=== PATIENT | male | born 1940 | race Caucasian/White ===

== ENCOUNTER → 2016-09-02 | Outpatient (CLI) | payer BC | END | disposition home or self-care (01) | LOC: C.RDSM 10:05 | PROVIDERS: ATTEND Physical Medicine & Rehabilitation Sports Medicine | DX: M17.12 Unilateral primary osteoarthritis, left knee (principal) ==

== ENCOUNTER → 2017-03-17 | Outpatient (CLI) | payer BC | END | disposition home or self-care (01) | LOC: C.RDSM 14:03 | PROVIDERS: ATTEND Physical Medicine & Rehabilitation Sports Medicine | DX: M17.12 Unilateral primary osteoarthritis, left knee (principal) ==

== ENCOUNTER 2023-03-01 15:12 | Inpatient (IN) ==
--- NOTE | 2023-03-01 16:16 | Emergency Department Note ---
Impression & Plan Acute confusion, Threatening behavior, Hypomagnesemia, Leukocytosis ED Provider Note NAME: JABIER RANGEL AGE: 83 SEX: M : 1940 ARRIVES VIA: Police [employer]iser INFORMANT: [Patient][nursing] ED PROVIDER(S): [Pro Brooks MD] CHIEF COMPLAINT: Mental health evaluation HISTORY OF PRESENT ILLNESS: He is an 83-year-old male who was brought by police for a mental health evaluation. The patient by his report has no history of mental illness. He denies taking any medications. The patient apparently felt his neighbor had stolen things from him. He feels his neighbor has been stealing from him for some time. Today, things escalated and the police were called. When the police arrived, the patient did have a gun on his person and is refusing to put the gun down. He did have an altercation with the police and was eventually handcuffed. He was brought for evaluation. The patient does not want to be here. He wants to be home. He feels that his neighbor is basely trying to ruin him. The patient did not know the year or the month, he did not know the hospital here at [facility]. The patient denies any family in the area, he states his family all . The patient is a on a 302 warrant. PMHx/PSHx: See Below SOCIAL HISTORY: See Below. PHYSICAL EXAM: GENERAL: Patient is in no acute distress. HEENT: No acute trauma, normocephalic atraumatic, mucous membranes moist, no nasal congestion. NECK: No stridor, no adenopathy, no meningismus, trachea is midline. LUNGS: Clear to auscultation bilaterally, no wheeze, no rhonchi, breath sounds equal. HEART: Without murmurs gallops or rubs, regular rate and rhythm. ABDOMEN: Soft, nontender, bowel sounds positive, no peritonitis. EXTREMITIES: No cyanosis or edema, full range of motion of all the joints without pain or difficulty, no signs for acute trauma. NEUROLOGIC: The patient missed the date and the year. He did not know he was at [facility]. There was no speech slur or focal motor deficit. SKIN: No rash, no jaundice, no diaphoresis. Psychiatric: Cooperative at the present, does not believe he should be here. Seems agitated. DIFFERENTIAL DIAGNOSIS: Psychosis, dementia, intracranial mass or bleed, electrolyte imbalance, metabolic derangement, UTI, among others. EMERGENCY DEPARTMENT COURSE/PROCEDURES: Prior/Outside records reviewed: 302 petitioning information. MEDICAL DECISION MAKING: There is a mild leukocytosis, this could be consistent with his altercation earlier or possibly infection. Patient has not had fever and denies any infectious symptoms. There was a normal hemoglobin and platelet count. No renal failure. Magnesium is low at 1.6. Bilirubin was slightly elevated, the remaining liver enzymes were unremarkable. The patient appeared to be in a euthyroid state. Urinalysis shows what appears to be contamination. Aspirin and Tylenol levels were undetectable. Alcohol level was undetectable. Urine tox was negative. Brain CT showed no acute bleed or mass effect. On exam, the patient was disoriented. He did not seem safe for discharge. He was quite confused with the year and date. He did not know he was at [facility]. The patient lives alone, he has no family to care for him. He became agitated today with his neighbor and was brandishing a rifle. He was brought by police because of his behavior. Charges are being filed. Patient does not appear to be psychotic. I doubt this is a mental health issue but more so, I think his presentation is consistent with dementia. A 302 petition was denied as again this did not appear to be a psychiatric illness. The patient though was not felt safe for discharge. He was a danger to himself and others. The office of aging was called by case management. The patient is to be hospitalized medically. The office of aging will work on appropriate placement. Patient did receive IV magnesium. He has not been agitated during his time here in the ED. I did speak with case management, the on-call hospitalist was consulted. DISPOSITION: Patient's presentation and findings warrant a hospital stay. Past Med/Surg History Medical History DM (diabetes mellitus), type 2 HLD (hyperlipidemia) HTN (hypertension) Surgical History (Updated 03/01/23 @ 18:59 by Sammie Barrientos PA-C) Cataract Family History (Updated 03/01/23 @ 19:00 by Sammie Barrientos PA-C) Other Family history unknown Social History Smoking Status: Never smoker Hx Alcohol Use: No Hx Substance Use: No Preferred Language: Ecuadorean Communication Ability: Effective Marketing Communications Specialist Required: No Current Living Situation: Alone Feels Safe at Home: Yes Safety Concerns: Feels Safe At This Time Home Meds Home Medications Medication Instructions Recorded Confirmed aspirin 81 mg capsule 81 mg PO DAILY 03/01/23 03/01/23 atorvastatin 40 mg tablet 40 mg PO DAILY 03/01/23 03/01/23 lisinopril 5 mg tablet 5 mg PO DAILY 03/01/23 03/01/23 metformin 500 mg tablet 500 mg PO BID 03/01/23 03/01/23 Results & Data (ED) Vital Signs Vital Signs - 24 hr 03/01/23 14:40 Temperature 36.8 C Temperature Source Oral Pulse Rate 94 H Respiratory Rate 14 Blood Pressure 162/83 H Blood Pressure Mean 109 Pulse Oximetry 96 Oxygen Delivery Method Room Air Sepsis Recent Fever Within 48 Hours No Sepsis New/Unexplained Change in Mental Status No Sepsis Action Taken by Nursing No Action Required Home Medications Current Medication List: was personally reviewed by me Laboratory Data Attestation: I reviewed the patient's lab results. 03/01/23 16:15 03/01/23 16:15 Lab Results 03/01/23 03/01/23 03/01/23 Range/Units 15:22 15:22 15:22 WBC (4.8-10.8) K/ul RBC (4.70-6.10) M/uL Hgb (14.0-18.0) g/dl Hct (42.0-52.0) % MCV (80.0-100.0) fL MCH (25.0-34.0) pg MCHC (32.0-36.0) g/dL RDW Std Deviation (36.4-46.3) fL RDW Coeff of Angela (11.5-14.5) % Plt Count (130-400) K/uL MPV (9.4-12.4) fL Immature Gran % (Auto) % Neut % (Auto) % Lymph % (Auto) % [place] % (Auto) % Eos % (Auto) % Baso % (Auto) % Neut # (Auto) (1.40-6.50) K/uL Lymph # (Auto) (1.2-3.4) K/uL Moh[place] # (Auto) (0.11-0.59) K/uL Eos # (Auto) (0-0.50) K/uL Baso # (Auto) (0-0.2) K/uL Immature Gran # (Auto) (0.01-0.20) K/uL Sodium (136-145) mmol/L Potassium (3.5-5.1) mmol/L Chloride (98-107) mmol/L Carbon Dioxide (21-32) mmol/L Anion Gap (3-11) BUN (6-23) mg/dl Creatinine (0.6-1.4) mg/dl Est Cr Clr Drug Dosing ml/min Est GFR ( Amer) ml/min Est GFR (Non-Af Amer) ml/min BUN/Creatinine Ratio (10-20) Glucose (70-99(Fasting)) mg/dl Calcium (8.6-10.3) mg/dl Magnesium (1.7-2.4) mg/dl Total Bilirubin (0.2-1.0) mg/dl AST (13-39) U/L ALT (7-52) U/L Alkaline Phosphatase (34-104) U/L Total Protein (6.0-8.3) gm/dl Albumin (3.4-5.0) gm/dl Globulin (2.5-4.0) gm/dl Albumin/Globulin Ratio (0.9-2) TSH (0.300-4.500) uIu/ml Urine Color Dark Yellow Urine Appearance Clear (Clear) Urine pH 5.0 (4.5-7.5) Ur Specific [place] 1.026 (1.000-1.030) Urine Protein 2+ H (Negative) Urine Glucose (UA) Negative (Negative) Urine Ketones 2+ H (Negative) Urine Blood Negative (Negative) Urine Nitrite Positive A (Negative) Urine Bilirubin 1+ H (Negative) Urine Urobilinogen Negative (Negative) Ur Leukocyte Esterase Negative (Negative) Urine WBC (Auto) 1-5 (0-5) /hpf Urine RBC (Auto) 0-4 (0-4) /hpf U Hyaline Cast (Auto) 10-30 H (0-5) /lpf U Epithel Cells (Auto) 10-20 H (0-5) /lpf Urine Bacteria (Auto) Negative (Negative) Salicylates (3.0-30) mg/dl Urine Opiates Screen Neg (Neg) Ur Methadone, Qual Neg (Neg) Acetaminophen (10-30) ug/ml Urine Barbiturates Neg (Neg) Ur Phencyclidine (PCP) Neg (Neg) U Amphetamin/Meth Scrn Neg (Neg) MDMA (Ecstasy) Screen Neg (Neg) U Benzodiazepines Scrn Neg (Neg) Ur Cocaine Metabolite Neg (Neg) U Marijuana (THC) Screen Neg (Neg) Ethyl Alcohol mg/dL (<10.0) mg/dl SARS-CoV-2, RNA, NAAT NEGATIVE (NEGATIVE) 03/01/23 03/01/23 03/01/23 Range/Units 16:15 16:15 16:15 WBC 13.38 H (4.8-10.8) K/ul RBC 5.79 (4.70-6.10) M/uL Hgb 17.4 (14.0-18.0) g/dl Hct 48.5 (42.0-52.0) % MCV 83.8 (80.0-100.0) fL MCH 30.1 (25.0-34.0) pg MCHC 35.9 (32.0-36.0) g/dL RDW Std Deviation 39.3 (36.4-46.3) fL RDW Coeff of Angela 13.0 (11.5-14.5) % Plt Count 284 (130-400) K/uL MPV 10.1 (9.4-12.4) fL Immature Gran % (Auto) 0.3 % Neut % (Auto) 89.4 % Lymph % (Auto) 5.2 % Mohave % (Auto) 4.8 % Eos % (Auto) 0.2 % Baso % (Auto) 0.1 % Neut # (Auto) 11.96 H (1.40-6.50) K/uL Lymph # (Auto) 0.69 L (1.2-3.4) K/uL Moh[place] # (Auto) 0.64 H (0.11-0.59) K/uL Eos # (Auto) 0.03 (0-0.50) K/uL Baso # (Auto) 0.02 (0-0.2) K/uL Immature Gran # (Auto) 0.04 (0.01-0.20) K/uL Sodium 140 (136-145) mmol/L Potassium 4.2 (3.5-5.1) mmol/L Chloride 107 (98-107) mmol/L Carbon Dioxide 22 (21-32) mmol/L Anion Gap 11 (3-11) BUN 28 H (6-23) mg/dl Creatinine 1.28 (0.6-1.4) mg/dl Est Cr Clr Drug Dosing 41.6 ml/min Est GFR ( Amer) 59.2 ml/min Est GFR (Non-Af Amer) 51.1 ml/min BUN/Creatinine Ratio 21.9 H (10-20) Glucose 211 H (70-99(Fasting)) mg/dl Calcium 9.9 (8.6-10.3) mg/dl Magnesium 1.6 L (1.7-2.4) mg/dl Total Bilirubin 1.3 H (0.2-1.0) mg/dl AST 27 (13-39) U/L ALT 18 (7-52) U/L Alkaline Phosphatase 69 (34-104) U/L Total Protein 7.1 (6.0-8.3) gm/dl Albumin 4.6 (3.4-5.0) gm/dl Globulin 2.5 (2.5-4.0) gm/dl Albumin/Globulin Ratio 1.8 (0.9-2) TSH 2.895 (0.300-4.500) uIu/ml Urine Color Urine Appearance (Clear) Urine pH (4.5-7.5) Ur Specific Surprise (1.000-1.030) Urine Protein (Negative) Urine Glucose (UA) (Negative) Urine Ketones (Negative) Urine Blood (Negative) Urine Nitrite (Negative) Urine Bilirubin (Negative) Urine Urobilinogen (Negative) Ur Leukocyte Esterase (Negative) Urine WBC (Auto) (0-5) /hpf Urine RBC (Auto) (0-4) /hpf U Hyaline Cast (Auto) (0-5) /lpf U Epithel Cells (Auto) (0-5) /lpf Urine Bacteria (Auto) (Negative) Salicylates (3.0-30) mg/dl Urine Opiates Screen (Neg) Ur Methadone, Qual (Neg) Acetaminophen (10-30) ug/ml Urine Barbiturates (Neg) Ur Phencyclidine (PCP) (Neg) U Amphetamin/Meth Scrn (Neg) MDMA (Ecstasy) Screen (Neg) U Benzodiazepines Scrn (Neg) Ur Cocaine Metabolite (Neg) U Marijuana (THC) Screen (Neg) Ethyl Alcohol mg/dL (<10.0) mg/dl SARS-CoV-2, RNA, NAAT (NEGATIVE) 03/01/23 03/01/23 Range/Units 16:15 16:15 WBC (4.8-10.8) K/ul RBC (4.70-6.10) M/uL Hgb (14.0-18.0) g/dl Hct (42.0-52.0) % MCV (80.0-100.0) fL MCH (25.0-34.0) pg MCHC (32.0-36.0) g/dL RDW Std Deviation (36.4-46.3) fL RDW Coeff of Angela (11.5-14.5) % Plt Count (130-400) K/uL MPV (9.4-12.4) fL Immature Gran % (Auto) % Neut % (Auto) % Lymph % (Auto) % [place] % (Auto) % Eos % (Auto) % Baso % (Auto) % Neut # (Auto) (1.40-6.50) K/uL Lymph # (Auto) (1.2-3.4) K/uL [place] # (Auto) (0.11-0.59) K/uL Eos # (Auto) (0-0.50) K/uL Baso # (Auto) (0-0.2) K/uL Immature Gran # (Auto) (0.01-0.20) K/uL Sodium (136-145) mmol/L Potassium (3.5-5.1) mmol/L Chloride (98-107) mmol/L Carbon Dioxide (21-32) mmol/L Anion Gap (3-11) BUN (6-23) mg/dl Creatinine (0.6-1.4) mg/dl Est Cr Clr Drug Dosing ml/min Est GFR ( Amer) ml/min Est GFR (Non-Af Amer) ml/min BUN/Creatinine Ratio (10-20) Glucose (70-99(Fasting)) mg/dl Calcium (8.6-10.3) mg/dl Magnesium (1.7-2.4) mg/dl Total Bilirubin (0.2-1.0) mg/dl AST (13-39) U/L ALT (7-52) U/L Alkaline Phosphatase (34-104) U/L Total Protein (6.0-8.3) gm/dl Albumin (3.4-5.0) gm/dl Globulin (2.5-4.0) gm/dl Albumin/Globulin Ratio (0.9-2) TSH (0.300-4.500) uIu/ml Urine Color Urine Appearance (Clear) Urine pH (4.5-7.5) Ur Specific Surprise (1.000-1.030) Urine Protein (Negative) Urine Glucose (UA) (Negative) Urine Ketones (Negative) Urine Blood (Negative) Urine Nitrite (Negative) Urine Bilirubin (Negative) Urine Urobilinogen (Negative) Ur Leukocyte Esterase (Negative) Urine WBC (Auto) (0-5) /hpf Urine RBC (Auto) (0-4) /hpf U Hyaline Cast (Auto) (0-5) /lpf U Epithel Cells (Auto) (0-5) /lpf Urine Bacteria (Auto) (Negative) Salicylates < 3.0 L (3.0-30) mg/dl Urine Opiates Screen (Neg) Ur Methadone, Qual (Neg) Acetaminophen < 3 L (10-30) ug/ml Urine Barbiturates (Neg) Ur Phencyclidine (PCP) (Neg) U Amphetamin/Meth Scrn (Neg) MDMA (Ecstasy) Screen (Neg) U Benzodiazepines Scrn (Neg) Ur Cocaine Metabolite (Neg) U Marijuana (THC) Screen (Neg) Ethyl Alcohol mg/dL < 10.0 (<10.0) mg/dl SARS-CoV-2, RNA, NAAT (NEGATIVE) Administered Medications Heparin Sodium (Porcine) (Heparin Sod 5,000 Unit/0.5 Ml Vial) 5,000 units SQ Q8 LAUREN Stop: 03/31/23 22:33 Last Admin: 03/01/23 23:06 Dose: Not Given Documented By: KSC Ceftriaxone Sodium 1,000 mg/ (Dextrose) 60 mls @ 100 mls/hr IV Q24H LAUREN; Protocol Stop: 03/11/23 18:59 Last Infusion: 03/01/23 21:21 Dose: 0 mls/hr Documented By: Admin: 03/01/23 20:45 Dose: 100 mls/hr Documented By: ERNESTO Insulin Aspart (Insulin Aspart Per Unit Charge) 0 units SC ACHS LAUREN Stop: 03/31/23 20:59 Last Admin: 03/01/23 22:01 Dose: 4 units Documented By: JODEE Co-signed By: ERNESTO Discontinued Medications Magnesium Sulfate/Dextrose (Magnesium Sulfate / D5w) 1 gm in 100 mls @ 100 mls/hr IV NOW STA Stop: 03/01/23 18:04 Last Infusion: 03/01/23 19:00 Dose: 0 mls/hr Documented By: Admin: 03/01/23 17:22 Dose: 100 mls/hr Documented By: ERIBERTO Imaging Data Radiologist's Impression: Head CT 03/01/23 16:[address] DOSE: 547.75 mGy.cm HISTORY: confusion TECHNIQUE: Multiaxial CT images of the head were performed without the use of intravenous contrast. Automated exposure control was utilized for this study. A dose lowering technique was utilized adhering to the principles of ALARA. Comparison: None. Findings: The paranasal sinuses and mastoid air cells are clear. The calvarium and skull base are intact. There is no mass, hematoma, midline shift, acute infarct. White matter hypodensity is nonspecific but suggestive of microvascular ischemic change. The ventricles and sulci demonstrate mild age-related involutional changes. Impression: No acute intracranial abnormality. ACT 112: Negative or not required by law. Electronically signed by: Nick Duong M.D. 03/01/2023 5:53 PM Discharge Plan Visit Data Chief Complaint: Mental Health Evaluation ED Provider: Pro Brooks Discharge Problem: Acute confusion, Threatening behavior, Hypomagnesemia, Leukocytosis Patient Disposition: Admitted As Inpatient Condition: Fair Discharge Instructions Interventions: ED Discharge Assessment Last Done: 03/01/23 22:07
[2023-03-01 16:35] LABS: Basophils # (auto) 0.02 K/uL (0-0.2); Basophils % (auto) 0.1 %; Eosinophils # (auto) 0.03 K/uL (0-0.50); Eosinophils % (auto) 0.2 %; Hematocrit (blood only) 48.5 % (42.0-52.0); Hemoglobin 17.4 g/dl (14.0-18.0); Immature Granulocytes # (auto) 0.04 K/uL (0.01-0.20); Immature Granulocytes % (auto) 0.3 %; Lymphocytes # (auto) 0.69 K/uL (1.2-3.4); Lymphocytes % (auto) 5.2 %; Mean Corpuscular Hemoglobin 30.1 pg (25.0-34.0); Mean Corpuscular Hgb Conc 35.9 g/dL (32.0-36.0); Mean Corpuscular Volume 83.8 fL (80.0-100.0); Mean Platelet Volume 10.1 fL (9.4-12.4); Monocytes # (auto) 0.64 K/uL (0.11-0.59); Monocytes % (auto) 4.8 %; Neutrophils # (auto) 11.96 K/uL (1.40-6.50); Neutrophils % (auto) 89.4 %; Platelet Count 284 K/uL (130-400); RDW Standard Deviation 39.3 fL (36.4-46.3); Red Blood Count 5.79 M/uL (4.70-6.10); White Blood Count 13.38 K/ul (4.8-10.8)
[2023-03-01 16:36] LABS: Appearance Urine Clear (Clear); Bacteria Urine Automated Negative (Negative); Blood Urine Negative (Negative); Color Urine Dark Yellow; Glucose Urine UA Negative (Negative); Ketones Urine 2+ (Negative); Leukocyte Esterase Urine Negative (Negative); Nitrite Urine Positive (Negative); Protein Urine 2+ (Negative); RBC Urine Automated 0-4 /hpf (0-4); Specific Gravity Urine 1.026 (1.000-1.030); Urobilinogen Urine Negative (Negative)
[2023-03-01 16:38] LABS: Bilirubin Urine 1+ (Negative)
[2023-03-01 16:50] LABS: Acetaminophen < 3 ug/ml (10-30); Salicylate < 3.0 mg/dl (3.0-30)
[2023-03-01 16:52] LABS: Albumin Globulin Ratio 1.8 (0.9-2); Albumin Level 4.6 gm/dl (3.4-5.0); BUN Creatinine Ratio 21.9 (10-20); Bilirubin,Total 1.3 mg/dl (0.2-1.0); Calcium 9.9 mg/dl (8.6-10.3); Creatinine Clr Calc Pharmacy 41.6 ml/min; Est GFR (African American) 59.2 ml/min; Est GFR (Non-African American) 51.1 ml/min; Globulin 2.5 gm/dl (2.5-4.0); Magnesium 1.6 mg/dl (1.7-2.4); Potassium 4.2 mmol/L (3.5-5.1); Total Protein 7.1 gm/dl (6.0-8.3)
[2023-03-01 16:55] LABS: Amphetamines+Metham, Urine Neg (Neg); Barbiturates, Urine Neg (Neg); Benzodiazepine, Urine Neg (Neg); Cocaine, Urine Neg (Neg); MDMA (Ecstacy), Urine Neg (Neg); Methadone, Urine Neg (Neg); Opiate, Urine Neg (Neg); Phencyclidine, Urine Neg (Neg)
[2023-03-01] MEDS ORDERED: MAGNESIUM SULFATE / D5W 1 GM/100 ML BAG IV STA (17:05)
--- NOTE | 2023-03-01 17:55 | CT Scan Report ---
HEAD CT NONCONTRAST CT DOSE: 547.75 mGy.cm HISTORY: confusion TECHNIQUE: Multiaxial CT images of the head were performed without the use of intravenous contrast. A utomated exposure control was utilized for this study. A dose lowering technique was utilized adheri ng to the principles of ALARA. Comparison: None. Findings: The paranasal sinuses and mastoid air cells are clear. The calvarium and skull base are int act. There is no mass, hematoma, midline shift, acute infarct. White matter hypodensity is nonspecifi c but suggestive of microvascular ischemic change. The ventricles and sulci demonstrate mild age-rela wolfgang involutional changes. Impression: No acute intracranial abnormality. ACT 112: Negative or not required by law. Electronically signed by: Nick Duong M.D. 03/01/2023 5:53 PM
[2023-03-01] MEDS ORDERED: CARBOHYDRATES FOR HYPOGLYCEMIA PO PRN (18:49)
[2023-03-01] MEDS ORDERED: DEXTROSE 50% 50 ML SYRINGE IV PRN (18:49)
[2023-03-01] MEDS ORDERED: GLUCAGON FOR INJ 1 MG VIAL SQ PRN (18:49)
[2023-03-01] MEDS ORDERED: GLUCOSE 10 TAB/TUBE PO PRN (18:49)
[2023-03-01] MEDS ORDERED: GLUCOSE 40% GEL 15 GM TUBE PO PRN (18:49)
--- NOTE | 2023-03-01 18:53 | History & Physical Report ---
Date of Service March 01, 2023 Assessment & Plan (1) Altered mental status: (2) DM (diabetes mellitus), type 2: (3) HTN (hypertension): (4) HLD (hyperlipidemia): Plan This is an 83yo M with a PMH of DM II, HTN, HLD who was brought in by police for mental health evaluation after an altercation with neighbors. Complicated UTI Afebrile, VSS, mild leukocytosis and abnormal UA consistent with possible UTI Started empiric rocephin, follow urine culture Altered mental status Suspect underlying dementia, infection also likely contributing Brought in by the police after he felt that his neighbor was stealing things from him and during a confrontation, things escalated and the police were called. Patient was found with a firearm Neighbors have noticed a cognitive decline and more confusion and paranoid behavior over the past 3 months No formal diagnosis of dementia known, patient no longer taking any medications or receiving routine medical care (followed with Dr. Mariscal years ago per chart) Afebrile, VSS, mild leukocytosis and abnormal UA consistent with possible UTI CT head without acute intracranial abnormality PT/OT evaluations, fall precautions, appreciate CM assistance with placement as patient currently unsafe to live alone Hypomagnesemia Initial Mg 1.6. Replaced HTN Chronic condition, history of noncompliance with medication. BP elevated in ED, likely in part situational. Continue to monitor, resume previous lisinopril 5mg dose in AM HLD Chronic condition, history of noncompliance with medication. Lipid panel in AM DM II Chronic condition, history of noncompliance with medication A1c in AM SSI while in-patient BSG AC HS Consider resuming previous metformin dose on discharge DVT Ppx: SQ heparin Code status: FULL Dispo: Observation med/surg Patient seen in collaboration with Dr. Monk. Please see addendum. History of Present Illness Chief Complaint: Confusion Primary Care Provider: NO PCP This is an 83yo M with a PMH of DM II, HTN, HLD who was brought in by police for mental health evaluation. History obtained from chart review and somewhat from patient, although he is confused. Patient was brought in by the police after he felt that his neighbor was stealing things from him and during a confrontation, things escalated and the police were called. When they arrived, the patient did have a gun on his person and was eventually handcuffed and brought to the ED for further evaluation. Patient lives alone, does not have any family nearby or that he speaks to. Denies any fever, chills, lightheadedness, chest pain, shortness of breath, nausea, vomiting, dumping, dysuria, diarrhea constipation. Has not seen a primary care provider in years and no longer takes any medications. Knows his name but does not know the year or why he was brought to [facility]. Home Medications Medication Instructions Recorded Confirmed Type aspirin 81 mg capsule 81 mg PO DAILY 03/01/23 03/01/23 History atorvastatin 40 mg tablet 40 mg PO DAILY 03/01/23 03/01/23 History lisinopril 5 mg tablet 5 mg PO DAILY 03/01/23 03/01/23 History metformin 500 mg tablet 500 mg PO BID 03/01/23 03/01/23 History Past Med/Surg History Medical History (Updated 03/01/23 @ 19:01 by Sammie Barrientos PA-C) DM (diabetes mellitus), type 2 HLD (hyperlipidemia) HTN (hypertension) Surgical History (Updated 03/01/23 @ 18:59 by Sammie Barrientos PA-C) Cataract Family History (Updated 03/01/23 @ 19:00 by Sammie Barrientos PA-C) Other Family history unknown Social History Smoking Status: Unknown if ever smoked Feels Safe at Home: Yes Review of Systems Review of Systems: At least ten systems reviewed and negative except as noted in the HPI. Physical Exam Physical Exam: Please see Dr. Monk's addendum for physical exam. Results & Data Results & Data Vital Signs (Past 12 Hours) Vital Signs Temp Pulse Pulse Resp BP BP Pulse Ox 03/01/23 18:21 86 18 149/79 H 94 03/01/23 14:40 36.8 C 94 H 14 162/83 H 96 O2 Del Method 03/01/23 18:21 Room Air 03/01/23 14:40 Room Air Laboratory Results Short CBC 03/01/23 Range/Units 16:15 WBC 13.38 H (4.8-10.8) K/ul Hgb 17.4 (14.0-18.0) g/dl Hct 48.5 (42.0-52.0) % Plt Count 284 (130-400) K/uL BMP 03/01/23 16:15 Sodium 140 Potassium 4.2 Chloride 107 Carbon Dioxide 22 BUN 28 H Creatinine 1.28 Glucose 211 H Calcium 9.9 Liver Function 03/01/23 Range/Units 16:15 Total Bilirubin 1.3 H (0.2-1.0) mg/dl AST 27 (13-39) U/L ALT 18 (7-52) U/L Alkaline Phosphatase 69 (34-104) U/L Albumin 4.6 (3.4-5.0) gm/dl Urine 03/01/23 Range/Units 15:22 Urine Color Dark Yellow Urine Appearance Clear (Clear) Urine pH 5.0 (4.5-7.5) Ur Specific Paulina 1.026 (1.000-1.030) Urine Protein 2+ H (Negative) Urine Glucose (UA) Negative (Negative) Diagnostic Findings Head CT 03/01/23 16:[address] DOSE: 547.75 mGy.cm HISTORY: confusion TECHNIQUE: Multiaxial CT images of the head were performed without the use of intravenous contrast. Automated exposure control was utilized for this study. A dose lowering technique was utilized adhering to the principles of ALARA. Comparison: None. Findings: The paranasal sinuses and mastoid air cells are clear. The calvarium and skull base are intact. There is no mass, hematoma, midline shift, acute infarct. White matter hypodensity is nonspecific but suggestive of microvascular ischemic change. The ventricles and sulci demonstrate mild age-related involutional changes. Impression: No acute intracranial abnormality. ACT 112: Negative or not required by law. Electronically signed by: Nick Duong M.D. 03/01/2023 5:53 PM Code Status & VTE Plan VTE Prophylaxis Plan VTE Prophylaxis will be ordered: Yes Supervising Physician Co-Signing Physician Notes Pt is a 83 y/o M with hx of DMII, HLD, hearing loss, CKD III admitted for AMS PE NAD, well developed Lungs: CTA, no wheezing or crackles Cardiac: Normal S1/S2, no murmur Abd: ND, NT, soft MSK: trace b/l distal LE pitting edema Psych: AAOx2 (person and place): could not remember the year and date A/P: AMS: -2/2 Delirium due to UTI in the setting of Dementia - CT head: no acute finding - it seems like pt lives by himself and does not have any family lives close by -per his outpt records he does have hx of memory problem and no hx of mood disorders -will initiate ceftriaxone for UTI - case management consult: likely need either help at home or dementia unit on discharge - will assess his mental status after abx treatment -will start his outpt meds -obtain A1C, lipid panel AM Agree with A/P by Sammie Barrientos PA-C
[2023-03-01] MEDS: cefTRIAXone SODIUM 1,000 MG in DEXTROSE 5% 50 ML IV SCH (20:45)
[2023-03-01] MEDS: INSULIN ASPART PER UNIT CHARGE SC SCH (22:01)
[2023-03-01] MEDS ORDERED: ACETAMINOPHEN 325 MG TAB PO PRN (22:34)
[2023-03-01] MEDS ORDERED: POLYETHYLENE (MIRALAX) 17 GM PACK PO PRN (22:34)
[2023-03-01] MEDS ORDERED: ONDANSETRON INJ 2 MG/ML 2 ML VIAL IV PRN (22:34)
[2023-03-01] MEDS: HEPARIN SOD 5,000 UNIT/0.5 ML VIAL SQ SCH (23:06)
[2023-03-02] MEDS: HEPARIN SOD 5,000 UNIT/0.5 ML VIAL SQ SCH ×3 (05:23→21:44)
[2023-03-02 07:30] LABS: Hematocrit (blood only) 39.4 % (42.0-52.0); Hemoglobin 14.2 g/dl (14.0-18.0); Mean Corpuscular Hemoglobin 29.9 pg (25.0-34.0); Mean Corpuscular Volume 82.9 fL (80.0-100.0); Mean Platelet Volume 10.1 fL (9.4-12.4); Platelet Count 186 K/uL (130-400); RDW Coefficient of Variation 12.7 % (11.5-14.5); RDW Standard Deviation 38.5 fL (36.4-46.3); Red Blood Count 4.75 M/uL (4.70-6.10); White Blood Count 4.97 K/ul (4.8-10.8)
[2023-03-02 07:46] LABS: Albumin Globulin Ratio 1.7 (0.9-2); Albumin Level 3.3 gm/dl (3.4-5.0); BUN Creatinine Ratio 24.1 (10-20); Bilirubin,Total 1.3 mg/dl (0.2-1.0); Calcium 8.4 mg/dl (8.6-10.3); Creatinine Clr Calc Pharmacy 59.2 ml/min; Est GFR (African American) 93.6 ml/min; Est GFR (Non-African American) 80.8 ml/min; Globulin 1.9 gm/dl (2.5-4.0); Magnesium 1.7 mg/dl (1.7-2.4); Potassium 3.5 mmol/L (3.5-5.1); Total Protein 5.2 gm/dl (6.0-8.3)
[2023-03-02] MEDS: INSULIN ASPART PER UNIT CHARGE SC SCH ×4 (08:14→21:02)
[2023-03-02] MEDS: lisinopril 5 MG TAB PO SCH (08:18)
[2023-03-02] MEDS: ATORVASTATIN 40 MG TAB PO SCH (08:18)
[2023-03-02] MEDS: ASPIRIN 81 MG ECTAB PO SCH (08:18)
[2023-03-02 09:51] LABS: Estimated Average Glucose 229 mg/dl; Hemoglobin A1C 9.6 % (4.5-5.6)
--- NOTE | 2023-03-02 11:20 | Hospitalist Progress Note ---
Date of Service March 02, 2023 Assessment & Plan (1) Altered mental status: (2) DM (diabetes mellitus), type 2: (3) HTN (hypertension): (4) HLD (hyperlipidemia): Plan Per admitting service note with addendum: This is an 83yo M with a PMH of DM II, HTN, HLD who was brought in by police for mental health evaluation after an altercation with neighbors. POSSIBLE UNDERLYING DEMENTIA VERSUS COGNITIVE DECLINE Brought in by the police after he felt that his neighbor was stealing things from him and during a confrontation, things escalated and the police were called. Patient was found with a firearm Neighbors have noticed a cognitive decline and more confusion and paranoid behavior over the past 3 months No formal diagnosis of dementia known, patient no longer taking any medications or receiving routine medical care (followed with Dr. Mariscal years ago per chart) Afebrile, VSS, mild leukocytosis CT head without acute intracranial abnormality 03/02 Afebrile Patient is calm, Cooperative, pleasant doubt underlying UTI Psychiatry service consulted Rule out UTI Afebrile, VSS, mild leukocytosis possible UTI, but unlikely Follow-up urine culture On empiric ceftriaxone day #2 Hypomagnesemia Initial Mg 1.6. Replaced HTN Chronic condition, history of noncompliance with medication. BP elevated in ED, likely in part situational. Continue to monitor, resume previous lisinopril 5mg dose in AM Blood pressure improving HLD Chronic condition, history of noncompliance with medication. Lipid panel in AM DM II Chronic condition, history of noncompliance with medication A1c 9.6 SSI while in-patient BSG AC HS Resume usual metformin upon discharge DVT Ppx: SQ heparin Code status: FULL Dispo: Pending evaluation by psychiatry service plan of care discussed with patient in detail and at length all questions answered he is understanding, agreeable, comfortable with the plan of care Admission and Anticipated Discharge Date Admission Date: March 01, 2023 Subjective Follow-up for altered mental status, etc. Seen walking around room, awake and alert, oriented x3, answers all questions appropriately Very pleasant, cooperative Denies feeling confused or forgetful States he lives by himself in his home, in a [place] acre property Independent with activities of daily living Reports his neighbor has been breaking into his property, stealing things Denies fevers or chills, problems with urination No headache, dizziness, chest pain, shortness of breath abdominal pain, nausea vomiting, problems with bowel movement No other symptoms Review of Systems Review of Systems: all noted and negative except for above Physical Exam Physical Exam: General- oriented x 3, not in distress, speaks in sentences with no effort or accessory muscle use Head- atraumatic Eyes- PERRL, EOMI, anicteric ENT- oropharynx clear Neck- supple, no JVD, no adenopathy, no thyromegaly; carotids +2/2, no bruits appreciated Lungs- clear to auscultation bilaterally, no rales/wheezes Heart- normal rate, regular rhythm; no murmur, no gallop, no rub appreciated Abdomen- normal bowel sounds, nondistended, soft, nontender, no masses or hepatosplenomegaly Extremities- no pretibial edema, no calf tenderness; peripheral pulses intact Neuro- alert, oriented x 3; CN 2-12 grossly intact; motor 5/5 bilaterally;sensation 100% on all extremities; no other gross focal neurologic deficits Skin- warm & dry Results & Data Results & Data Vital Signs (Past 12 Hours) Vital Signs Temp Pulse Resp BP Pulse Ox O2 Del Method 03/02/23 07:19 36.7 C 55 L 16 146/68 H 97 Room Air all noted and reviewed including below
--- NOTE | 2023-03-02 15:21 | Psychiatric Consultation ---
Date of Consultation March 02, 2023 Impression / Recommendations Impression 83 yo male with a progressive cognitive decline, significant short-term memory deficits which he seems to have some awareness of but doesn't connect that with his paranoia about his things being taken. Although he expresses anger re: neighbor, he denies HI and I agree that there is no evidence of eric or other psychotic illness that is interfering with his overall medical decision making. His presentation is consistent with major cognitive disorder with behavioral disturbance, perhaps seems more intact today as there is a sundowning component. UTI is still being ruled out per Dr. Ibrahim. (1) Major neurocognitive disorder: Plan The patient is currently stating he does not want more in home services or placement. He appears to be caring for his most basic ADLs. The patient is currently stating he does not want more medication--likely to benefit from low dose Zyprexa 2.5 mg trial but does carry risks to elderly with dementia and he cannot be forced (except if needed for acute agitation.) Case discussed with Dr. Ibrahim as although Mr. Rowland clearly has impairment and is not making good choices, particularly with regards to incident with police, I feel at this time he retains medical decision making capacity with regards to his housing and medical care. Per VÍCTOR his children do not want to seek POA/serve as substitute decision makers. This is not to suggest that he is of zero risk to himself and the community, just that he retains certain rights and cannot be held on an involuntary commitment in under [place] mental health law--appears that has already confirmed that neighbors are aware of his situation/secured weapons. Unclear if police were involved in this process [address] Ibrahim stated he plans to continue hospitalization, communicate directly with office of aging and/or police for additional collateral. Psych History Identifying Data 83 yo male from [place], admit few hours ago following incident with police. Consult is for dementia with behavioral disturbance. Chief Complaint "My neighbor takes stuff but I would never use a gun for that, guns are for shooting groundhogs." History of Present Illness Mr. Rowland presented to the ED last pm on a 302 warrant that was declined as no mental health history and exam per Dr. Brooks more consistent with cognitive decline. has been in contact with neighbor and daughter who confirm cognitive decline, some history of explosiveness. He has been estranged from his children for some time. He has been calling the police complaining about his neighbor taking things (acutally him forgetting where he is placing things) and he has been receiving some services with Office of Aging, including transportation for groceries. [place] and police describe the home as in disarray. CM has confirmed that there is an active warrant for assault on an officer given incident with knife yesterday. He has been pleasant and oriented in interactions with CM and liaison nurse. 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 Visuospatial seems intact as normal clock drawing, corrected his own errors but recall is poor. His deficits seem primarily in short-term memory. He denies mood symptoms, described how he manages his medications (I cannot confirm outpatient appointments or scripts in surescripts), denies getting help from a neighbor (has been confirmed), is able to describe his [place] [employer] and bills. Home Medications Medication Instructions Recorded Confirmed Type aspirin 81 mg capsule 81 mg PO DAILY 03/01/23 03/01/23 History atorvastatin 40 mg tablet 40 mg PO DAILY 03/01/23 03/01/23 History lisinopril 5 mg tablet 5 mg PO DAILY 03/01/23 03/01/23 History metformin 500 mg tablet 500 mg PO BID 03/01/23 03/01/23 History Patient History Medical History DM (diabetes mellitus), type 2 HLD (hyperlipidemia) HTN (hypertension) Surgical History Cataract Family History (Updated 03/01/23 @ 19:00 by Sammie Barrientos PA-C) Other Family history unknown Social History Smoking Status: Never smoker Hx Alcohol Use: No Hx Substance Use: No Preferred Language: Northern Irish Communication Ability: Effective Hand Edger Required: No Current Living Situation: Alone Feels Safe at Home: Yes Safety Concerns: Feels Safe At This Time Assistive Devices: None Physical Exam Psychiatric: Orientation: alert and oriented x 3 Apperance: appropriately dressed and appropriately groomed Eye Contact: good eye contact Motor Behavior: no abnormal motor movements Speech: normal rate/rhythm/volume of speech (though loud at times as hard of hearing) Affect: euthymic affect Mood: no depressed mood Thought Process: + circumstantial thought process Thought Content: + preoccupation Suicidal Thoughts: denies suicidal thoughts Homicidal Thoughts: denies homicidal thoughts Hallucinations: no auditory hallucinations and no visual hallucinations Cognition: attention grossly intact and language grossly intact Estimated Intelligence: consistent with education level Insight: + poor insight Judgment: + limited judgement Vital Signs (Past 24 Hours): Last Vital Signs Temp 36.4 C L 03/02/23 15:09 Pulse 76 03/02/23 15:09 Resp 16 03/02/23 15:09 BP 163/86 H 03/02/23 15:09 Pulse Ox 98 03/02/23 15:09 O2 Del Method Room Air 03/02/23 15:09 Review of Systems All systems reviewed & are unremarkable except as noted in HPI & below Results & Data (PSY) Laboratory Results Microbiology 03/01/23 20:10 Blood Aerobic Blood Culture - Pending 03/01/23 20:10 Blood Anaerobic Blood Culture - Pending 03/01/23 20:16 Blood Aerobic Blood Culture - Pending 03/01/23 20:16 Blood Anaerobic Blood Culture - Pending Labs 03/01/23 03/01/23 03/01/23 15:22 15:22 15:22 WBC RBC Hgb Hct MCV MCH MCHC RDW Std Deviation RDW Coeff of Angela Plt Count MPV Immature Gran % (Auto) Neut % (Auto) Lymph % (Auto) [place] % (Auto) Eos % (Auto) Baso % (Auto) Neut # (Auto) Lymph # (Auto) [place] # (Auto) Eos # (Auto) Baso # (Auto) Immature Gran # (Auto) Sodium Potassium Chloride Carbon Dioxide Anion Gap BUN Creatinine Est Cr Clr Drug Dosing Est GFR ( Amer) Est GFR (Non-Af Amer) BUN/Creatinine Ratio Glucose POC Glucose Estimat Average Glucose Hemoglobin A1c Calcium Magnesium Total Bilirubin AST ALT Alkaline Phosphatase Total Protein Albumin Globulin Albumin/Globulin Ratio Triglycerides Cholesterol LDL Cholesterol, Calc VLDL Cholesterol, Calc HDL Cholesterol Cholesterol/HDL Ratio TSH Urine Color Dark Yellow Urine Appearance Clear Urine pH 5.0 Ur Specific [place] 1.026 Urine Protein 2+ H Urine Glucose (UA) Negative Urine Ketones 2+ H Urine Blood Negative Urine Nitrite Positive A Urine Bilirubin 1+ H Urine Urobilinogen Negative Ur Leukocyte Esterase Negative Urine WBC (Auto) 1-5 Urine RBC (Auto) 0-4 U Hyaline Cast (Auto) 10-30 H U Epithel Cells (Auto) 10-20 H Urine Bacteria (Auto) Negative Salicylates Urine Opiates Screen Neg Ur Methadone, Qual Neg Acetaminophen Urine Barbiturates Neg Ur Phencyclidine (PCP) Neg U Amphetamin/Meth Scrn Neg MDMA (Ecstasy) Screen Neg U Benzodiazepines Scrn Neg Ur Cocaine Metabolite Neg U Marijuana (THC) Screen Neg Ethyl Alcohol mg/dL SARS-CoV-2, RNA, NAAT NEGATIVE 03/01/23 03/01/23 03/01/23 16:15 16:15 16:15 WBC 13.38 H RBC 5.79 Hgb 17.4 Hct 48.5 MCV 83.8 MCH 30.1 MCHC 35.9 RDW Std Deviation 39.3 RDW Coeff of Angela 13.0 Plt Count 284 MPV 10.1 Immature Gran % (Auto) 0.3 Neut % (Auto) 89.4 Lymph % (Auto) 5.2 [place] % (Auto) 4.8 Eos % (Auto) 0.2 Baso % (Auto) 0.1 Neut # (Auto) 11.96 H Lymph # (Auto) 0.69 L [place] # (Auto) 0.64 H Eos # (Auto) 0.03 Baso # (Auto) 0.02 Immature Gran # (Auto) 0.04 Sodium 140 Potassium 4.2 Chloride 107 Carbon Dioxide 22 Anion Gap 11 BUN 28 H Creatinine 1.28 Est Cr Clr Drug Dosing 41.6 Est GFR ( Amer) 59.2 Est GFR (Non-Af Amer) 51.1 BUN/Creatinine Ratio 21.9 H Glucose 211 H POC Glucose Estimat Average Glucose Hemoglobin A1c Calcium 9.9 Magnesium 1.6 L Total Bilirubin 1.3 H AST 27 ALT 18 Alkaline Phosphatase 69 Total Protein 7.1 Albumin 4.6 Globulin 2.5 Albumin/Globulin Ratio 1.8 Triglycerides Cholesterol LDL Cholesterol, Calc VLDL Cholesterol, Calc HDL Cholesterol Cholesterol/HDL Ratio TSH 2.895 Urine Color Urine Appearance Urine pH Ur Specific [place] Urine Protein Urine Glucose (UA) Urine Ketones Urine Blood Urine Nitrite Urine Bilirubin Urine Urobilinogen Ur Leukocyte Esterase Urine WBC (Auto) Urine RBC (Auto) U Hyaline Cast (Auto) U Epithel Cells (Auto) Urine Bacteria (Auto) Salicylates Urine Opiates Screen Ur Methadone, Qual Acetaminophen Urine Barbiturates Ur Phencyclidine (PCP) U Amphetamin/Meth Scrn MDMA (Ecstasy) Screen U Benzodiazepines Scrn Ur Cocaine Metabolite U Marijuana (THC) Screen Ethyl Alcohol mg/dL SARS-CoV-2, RNA, NAAT 03/01/23 03/01/23 03/01/23 16:15 16:15 20:50 WBC RBC Hgb Hct MCV MCH MCHC RDW Std Deviation RDW Coeff of Angela Plt Count MPV Immature Gran % (Auto) Neut % (Auto) Lymph % (Auto) [place] % (Auto) Eos % (Auto) Baso % (Auto) Neut # (Auto) Lymph # (Auto) [place] # (Auto) Eos # (Auto) Baso # (Auto) Immature Gran # (Auto) Sodium Potassium Chloride Carbon Dioxide Anion Gap BUN Creatinine Est Cr Clr Drug Dosing Est GFR ( Amer) Est GFR (Non-Af Amer) BUN/Creatinine Ratio Glucose POC Glucose 270 H Estimat Average Glucose Hemoglobin A1c Calcium Magnesium Total Bilirubin AST ALT Alkaline Phosphatase Total Protein Albumin Globulin Albumin/Globulin Ratio Triglycerides Cholesterol LDL Cholesterol, Calc VLDL Cholesterol, Calc HDL Cholesterol Cholesterol/HDL Ratio TSH Urine Color Urine Appearance Urine pH Ur Specific [place] Urine Protein Urine Glucose (UA) Urine Ketones Urine Blood Urine Nitrite Urine Bilirubin Urine Urobilinogen Ur Leukocyte Esterase Urine WBC (Auto) Urine RBC (Auto) U Hyaline Cast (Auto) U Epithel Cells (Auto) Urine Bacteria (Auto) Salicylates < 3.0 L Urine Opiates Screen Ur Methadone, Qual Acetaminophen < 3 L Urine Barbiturates Ur Phencyclidine (PCP) U Amphetamin/Meth Scrn MDMA (Ecstasy) Screen U Benzodiazepines Scrn Ur Cocaine Metabolite U Marijuana (THC) Screen Ethyl Alcohol mg/dL < 10.0 SARS-CoV-2, RNA, NAAT 03/02/23 03/02/23 03/02/23 07:03 07:03 07:03 WBC 4.97 D RBC 4.75 Hgb 14.2 D Hct 39.4 L MCV 82.9 MCH 29.9 MCHC 36.0 RDW Std Deviation 38.5 RDW Coeff of Angela 12.7 Plt Count 186 MPV 10.1 Immature Gran % (Auto) Neut % (Auto) Lymph % (Auto) [place] % (Auto) Eos % (Auto) Baso % (Auto) Neut # (Auto) Lymph # (Auto) [place] # (Auto) Eos # (Auto) Baso # (Auto) Immature Gran # (Auto) Sodium 138 Potassium 3.5 Chloride 110 H Carbon Dioxide 23 Anion Gap 5 BUN 20 Creatinine 0.83 D Est Cr Clr Drug Dosing 59.2 Est GFR ( Amer) 93.6 Est GFR (Non-Af Amer) 80.8 BUN/Creatinine Ratio 24.1 H Glucose 154 H POC Glucose Estimat Average Glucose 229 Hemoglobin A1c 9.6 H Calcium 8.4 L Magnesium 1.7 Total Bilirubin 1.3 H AST 22 ALT 13 Alkaline Phosphatase 52 Total Protein 5.2 L D Albumin 3.3 L Globulin 1.9 L Albumin/Globulin Ratio 1.7 Triglycerides 49 Cholesterol 138 LDL Cholesterol, Calc 82 VLDL Cholesterol, Calc 10 HDL Cholesterol 46 Cholesterol/HDL Ratio 3.0 TSH Urine Color Urine Appearance Urine pH Ur Specific [place] Urine Protein Urine Glucose (UA) Urine Ketones Urine Blood Urine Nitrite Urine Bilirubin Urine Urobilinogen Ur Leukocyte Esterase Urine WBC (Auto) Urine RBC (Auto) U Hyaline Cast (Auto) U Epithel Cells (Auto) Urine Bacteria (Auto) Salicylates Urine Opiates Screen Ur Methadone, Qual Acetaminophen Urine Barbiturates Ur Phencyclidine (PCP) U Amphetamin/Meth Scrn MDMA (Ecstasy) Screen U Benzodiazepines Scrn Ur Cocaine Metabolite U Marijuana (THC) Screen Ethyl Alcohol mg/dL SARS-CoV-2, RNA, NAAT 03/02/23 03/02/23 07:38 11:34 WBC RBC Hgb Hct MCV MCH MCHC RDW Std Deviation RDW Coeff of Angela Plt Count MPV Immature Gran % (Auto) Neut % (Auto) Lymph % (Auto) [place] % (Auto) Eos % (Auto) Baso % (Auto) Neut # (Auto) Lymph # (Auto) [place] # (Auto) Eos # (Auto) Baso # (Auto) Immature Gran # (Auto) Sodium Potassium Chloride Carbon Dioxide Anion Gap BUN Creatinine Est Cr Clr Drug Dosing Est GFR ( Amer) Est GFR (Non-Af Amer) BUN/Creatinine Ratio Glucose POC Glucose 157 H 192 H Estimat Average Glucose Hemoglobin A1c Calcium Magnesium Total Bilirubin AST ALT Alkaline Phosphatase Total Protein Albumin Globulin Albumin/Globulin Ratio Triglycerides Cholesterol LDL Cholesterol, Calc VLDL Cholesterol, Calc HDL Cholesterol Cholesterol/HDL Ratio TSH Urine Color Urine Appearance Urine pH Ur Specific [place] Urine Protein Urine Glucose (UA) Urine Ketones Urine Blood Urine Nitrite Urine Bilirubin Urine Urobilinogen Ur Leukocyte Esterase Urine WBC (Auto) Urine RBC (Auto) U Hyaline Cast (Auto) U Epithel Cells (Auto) Urine Bacteria (Auto) Salicylates Urine Opiates Screen Ur Methadone, Qual Acetaminophen Urine Barbiturates Ur Phencyclidine (PCP) U Amphetamin/Meth Scrn MDMA (Ecstasy) Screen U Benzodiazepines Scrn Ur Cocaine Metabolite U Marijuana (THC) Screen Ethyl Alcohol mg/dL SARS-CoV-2, RNA, NAAT Medications Administered Aspirin (Aspirin 81 Mg Ectab) 81 mg PO DAILY [facility] Stop: 04/01/23 08:59 Last Admin: 03/02/23 08:18 Dose: 81 mg Documented By: BEST Atorvastatin Calcium (Atorvastatin 40 Mg Tab) 40 mg PO DAILY [facility] Stop: 04/01/23 08:59 Last Admin: 03/02/23 08:18 Dose: 40 mg Documented By: BEST Heparin Sodium (Porcine) (Heparin Sod 5,000 Unit/0.5 Ml Vial) 5,000 units SQ Q8 [facility] Stop: 03/31/23 22:33 Last Admin: 03/02/23 05:23 Dose: Not Given Documented By: Admin: 03/01/23 23:06 Dose: Not Given Documented By: OLAF Ceftriaxone Sodium 1,000 mg/ (Dextrose) 60 mls @ 100 mls/hr IV Q24H [facility]; Protocol Stop: 03/11/23 18:59 Last Infusion: 03/01/23 21:21 Dose: 0 mls/hr Documented By: Admin: 03/01/23 20:45 Dose: 100 mls/hr Documented By: ERNESTO Insulin Aspart (Insulin Aspart Per Unit Charge) 0 units SC ACHS [facility] Stop: 03/31/23 20:59 Last Admin: 03/02/23 12:40 Dose: 7 units Documented By: BEST Co-signed By: ROSSANA Admin: 03/02/23 08:14 Dose: 5 units Documented By: BEST Co-signed By: HOSEA Admin: 03/01/23 22:01 Dose: 4 units Documented By: JODEE Co-signed By: ERNESTO Lisinopril (Lisinopril 5 Mg Tab) 5 mg PO DAILY [facility] Stop: 04/01/23 08:59 Last Admin: 03/02/23 08:18 Dose: 5 mg Documented By: [facility] Coding Level of Care Code 94516 U Intl Hosp Care Lvl 2 Diagnoses Major neurocognitive disorder F03.90
[2023-03-02] MEDS: cefTRIAXone SODIUM 1,000 MG in DEXTROSE 5% 50 ML IV SCH (18:11)
[2023-03-03] MEDS: HEPARIN SOD 5,000 UNIT/0.5 ML VIAL SQ SCH ×3 (05:15→21:20)
[2023-03-03 07:17] LABS: Hematocrit (blood only) 40.2 % (42.0-52.0); Hemoglobin 14.3 g/dl (14.0-18.0); Mean Corpuscular Hemoglobin 29.7 pg (25.0-34.0); Mean Corpuscular Hgb Conc 35.6 g/dL (32.0-36.0); Mean Corpuscular Volume 83.4 fL (80.0-100.0); Mean Platelet Volume 10.5 fL (9.4-12.4); Platelet Count 185 K/uL (130-400); RDW Coefficient of Variation 12.7 % (11.5-14.5); RDW Standard Deviation 38.5 fL (36.4-46.3); Red Blood Count 4.82 M/uL (4.70-6.10); White Blood Count 4.83 K/ul (4.8-10.8)
[2023-03-03] MEDS: ATORVASTATIN 40 MG TAB PO SCH (08:16)
[2023-03-03] MEDS: lisinopril 5 MG TAB PO SCH (08:16)
[2023-03-03] MEDS: ASPIRIN 81 MG ECTAB PO SCH (08:16)
[2023-03-03] MEDS: INSULIN ASPART PER UNIT CHARGE SC SCH ×4 (08:23→21:19)
--- NOTE | 2023-03-03 12:06 | Communication Note ---
Date of Service: March 03, 2023 Mr. Rowland was redirectible overnight, taking PO meds, no growth on urine culture day 1. blood sugars vary. He did complete a MOCA with the liaison nurse, scored 12-13/30 indicating moderate cognitive impairment. He was not fully oriented today compared to yesterday as out of his usual home environment. He hasn't exhibited any significant impulsivity (though does wander halls). He maintains that his neighbor takes his things as he is in denial re: his misplacing them but otherwise does not express delusions, hallucinations, et.c Dr. Ibrahim updated as given new diagnosis of cognitive disorder and complexities of case may benefit from a neurology consult as a second opinion re: his decision making capacity.
--- NOTE | 2023-03-03 17:58 | Hospitalist Progress Note ---
Date of Service March 03, 2023 Assessment & Plan (1) DM (diabetes mellitus), type 2: (2) HTN (hypertension): (3) HLD (hyperlipidemia): (4) Altered mental status: Plan Per admitting service note with addendum: This is an 83yo M with a PMH of DM II, HTN, HLD who was brought in by police for mental health evaluation after an altercation with neighbors. POSSIBLE UNDERLYING DEMENTIA VERSUS COGNITIVE DECLINE Brought in by the police after he felt that his neighbor was stealing things from him and during a confrontation, things escalated and the police were called. Patient was found with a firearm Neighbors have noticed a cognitive decline and more confusion and paranoid behavior over the past 3 months No formal diagnosis of dementia known, patient no longer taking any medications or receiving routine medical care (followed with Dr. Mariscal years ago per chart) On admission: Afebrile, VSS, mild leukocytosis CT head without acute intracranial abnormality 03/03 Afebrile Patient is calm, cooperative but does not recall me, event surrounding arrival of the police at his home 2 days ago He is irritable today UTI ruled out Discontinue antibiotics Discussed yesterday with Officer Corporal Skylar Pate, information gathered Discussed with psychiatry service Dr. Palumbo, recommending neurology consult for dementia and medical decision-making capacity evaluation manager college on board, requested to discuss case with office of aging for disposition Hypomagnesemia Initial Mg 1.6. Replaced HTN Chronic condition, history of noncompliance with medication. Continue usual lisinopril 5mg dose Monitor blood pressure HLD Chronic condition, history of noncompliance with medication DM II Chronic condition, history of noncompliance with medication A1c 9.6 SSI while in-patient [facility] AC HS Resume usual metformin upon discharge DVT Ppx: SQ heparin Code status: FULL Dispo: Pending evaluation by psychiatry service plan of care discussed with patient in detail and at length Patient was upset that he has to stay for at least another day for neurology evaluation, he stated " this is a fraud, theft, rape. You just want to get more insurance money from me" Explained that we need to follow the process of evaluating him prior to discharge Admission and Anticipated Discharge Date Admission Date: March 02, 2023 Subjective Follow-up for cognitive impairment versus dementia, etc. Seen resting in bedside chair, sitting up, not in distress, comfortable Patient does not remember me despite extensive interview with him yesterday Also cannot recall why the police arrived at his place last Friday Still reports neighbor was trying to steal from him Oriented to person and place no chest pain, dyspnea, palpitations, dizziness Denies urinary symptoms, abdominal pain, fevers or chills No any other symptom Review of Systems Review of Systems: all noted and negative except for above Physical Exam Physical Exam: General- oriented x 1-2, not in distress, speaks in sentences with no effort or accessory muscle use Eyes- anicteric Neck- no JVD Lungs- clear breath sounds bilaterally, no rales/wheezes Heart- normal rate, regular rhythm; no murmurs Abdomen- normal bowel sounds, nondistended, soft, nontender Extremities- no pretibial edema, no calf tenderness Neuro- alert, oriented x 1-2; no new gross focal neurologic deficits Skin- warm & dry Results & Data Results & Data Vital Signs (Past 12 Hours) Vital Signs Temp Pulse Resp BP Pulse Ox O2 Del Method 03/03/23 15:01 36.6 C 81 16 150/85 H 99 Room Air 03/03/23 06:21 36.6 C 66 18 147/87 H 99 Room Air all noted and reviewed including below
[2023-03-03] MEDS: cefTRIAXone SODIUM 1,000 MG in DEXTROSE 5% 50 ML IV SCH (19:03)
[2023-03-04] MEDS: HEPARIN SOD 5,000 UNIT/0.5 ML VIAL SQ SCH ×3 (05:07→21:14)
[2023-03-04] MEDS: ATORVASTATIN 40 MG TAB PO SCH (08:28)
[2023-03-04] MEDS: lisinopril 5 MG TAB PO SCH (08:28)
[2023-03-04] MEDS: ASPIRIN 81 MG ECTAB PO SCH (08:29)
[2023-03-04] MEDS: INSULIN ASPART PER UNIT CHARGE SC SCH ×4 (08:34→21:15)
--- NOTE | 2023-03-04 09:25 | Neurology Consultation ---
Date of Consultation March 04, 2023 Assessment & Plan (1) Major neurocognitive disorder: Plan 83-year-old male with probable mild to moderate dementia with associated behavioral disorder/paranoia. Patient may have a mixed dementia with elements of Alzheimer's disease and vascular dementia pathology. I do not think he has Lewy body dementia. His imaging is not suggestive of normal pressure hydrocephalus. Further, there is no evidence of stroke, SUPPLY CHAIN PROJECT MANAGER hemorrhage, or other acute neurologic process at this time. He does have marginally low vitamin B12 status and may benefit from parenteral supplementation followed by oral supplementation. It would not be unreasonable to start a low-dose of donepezil, 5 mg at bedtime. Cholinesterase inhibitors have shown some potential benefit in addressing behavioral symptoms although they are not specifically FDA approved for this purpose. These medications, however, may have mild benefit for cognitive symptoms. Further, in light of his presentation and poor performance on a [place] cognitive assessment with psychiatry, I do have concerns regarding his decision-making capacity, and more likely than not, I would expect that he would be unable to safely manage his personal or medical affairs. History of Present Illness Reason for Consultation: Dementia, paranoia, medical decision capacity Requesting Physician: Patrice Attending Physician: Isra Ibrahim MD History of Present Illness The patient is an 83-year-old male who was brought to the emergency department by police on March 01, 2023 for a mental health evaluation. The patient had indicated that he felt his neighbor had stolen things from him. Things apparently escalated and the police were called, the patient had a gun on his person and refused to put the gun down. He had an altercation with the police and was eventually handcuffed and brought to the emergency department for further assessment as above. He was not oriented and had indicated that all of his family members had . Past medical history notable for type 2 diabetes mellitus, hypertension, and hyperlipidemia. He was felt to have a possible urinary tract infection and was treated empirically with Rocephin. Patient's neighbors had indicated concern regarding cognitive decline characterized by confusion and paranoia over the previous 3 months. Psychiatry was consulted with an impression of progressive cognitive decline, significant short-term memory deficits with some awareness of this issue. He had expressed some anger regarding his neighbor and had denied any homicidal ideation, there was no evidence for eric or other psychotic illness interfering with his overall medical decision making. It was noted that he forgets where he puts things and believes they are stolen and calls the police, then when they perform a check on the patient, he forgets why he called. He was felt to possibly have major neurocognitive disorder or dementia. A trial of low-dose Zyprexa was recommended. It was felt that his condition would likely progress and ultimately require emergency guardianship with concern regarding patient's ability to complete instrumental activities of daily living. He is apparently known to the office of aging and utilizing transportation services for groceries and he has given up driving. He completed a [place] cognitive assessment with a psychiatry liaison nurse scoring 12-13 out of 30 indicating moderate cognitive impairment. I did interview the patient this morning while he was sitting up at bedside eating breakfast. He is very hard of hearing. He was pleasant and cooperative, but somewhat disinterested in the assessment. Home Medications Medication Instructions Recorded Confirmed Type aspirin 81 mg capsule 81 mg PO DAILY 03/01/23 03/01/23 History atorvastatin 40 mg tablet 40 mg PO DAILY 03/01/23 03/01/23 History lisinopril 5 mg tablet 5 mg PO DAILY 03/01/23 03/01/23 History metformin 500 mg tablet 500 mg PO BID 03/01/23 03/01/23 History Patient History Medical History (Updated 03/03/23 @ 10:15 by Sandra Rainey) DM (diabetes mellitus), type 2 HLD (hyperlipidemia) HTN (hypertension) Surgical History (Updated 03/03/23 @ 10:15 by Sandra Rainey) Cataract Family History (System 03/03/23 @ 10:15 by Sandra Rainey) Other Family history unknown Social History (System 03/03/23 @ 10:15 by Sandra Rainey) Smoking Status: Never smoker Hx Alcohol Use: No Hx Substance Use: No Preferred Language: [place] Communication Ability: Effective Spray Operator Required: No Current Living Situation: Alone Feels Safe at Home: Yes Assistive Devices: None Review of Systems Constitutional: no fever and no chills Eyes: no blind spots Ear, Nose, Mouth, Throat: + hearing loss Respiratory: no cough and no dyspnea Cardiovascular: no chest pain and no palpitations Gastrointestinal: no nausea and no vomiting Genitourinary: no dysuria Musculoskeletal: no neck pain and no myalgia Integumentary: no rash and no lesions Neurologic: + memory loss; no gait abnormality, no tremor(s) and no headache(s) Psychiatric: as per Subjective / HPI; no hallucinations Hematologic / Lymphatic: no easy bleeding and no easy bruising Exam (Neuro) Constitutional: well developed; no acute distress Eyes: normal visual boland by confrontation, PERRL and EOM intact bilaterally Cardiovascular: Vessels: no carotid bruit Neurologic: Oriented to:: Person; negative Place or Time (Oriented to day of the week, but not date) Memory: negative Short Term Intact (2 out of 3 with delayed recall, 3 out of 3 correct with cueing) Attention: Span Intact; negative Concentration Intact Speech Fluency: negative Dysarthria or Dysfluency Speech Aphasia: negative Aphasia Fund of Knowledge: Past History and Vocabulary; negative Current Events Cranial Nerves: Normal II, III, IV, , V, VII, IX, X, XI and XII; Abnorm VIII Motor Strength: Normal Lower Extremities and Normal Upper Extremities Motor Tone: Normal Lower Extremities and Normal Upper Extremities Muscle Bulk/Involuntary Movements: No Involuntary Movements; negative Muscle Atrophy Sensation: Light Touch Intact, Pain/Temperature Intact, Vibration Intact and Proprioception Intact Coordination: Normal; negative Limited Balance, Dysdiadochokinesia, Finger-Nose Abnormal or Heel-Alonzo Abnormal Deep Tendon Reflexes: Rt Triceps: 2+, Lt Triceps: 2+, Rt Biceps: 2+, Lt Biceps: 2+, Rt Brachioradialis: 2+, Lt Brachioradialis: 2+, Rt Patellar: 2+, Lt Patellar: 2+, Rt Ankle: 1+ and Lt Ankle: 1+ Special Tests: negative Babinski Present Gait: Normal Station and Gait Details: Mild difficulty copying intersecting pentagons Results & Data Vital Signs (Past 12 Hours) Vital Signs Temp Pulse Resp BP Pulse Ox O2 Del Method 03/04/23 07:55 36.8 C 60 18 145/78 H 98 Room Air Laboratory Results A CBC completed yesterday was reviewed. WBC 4.83, hemoglobin 14.3, hematocrit 40.2, platelet count 185. A metabolic panel completed March 02 was reviewed. Sodium 138, potassium 3.5, BUN 20, creatinine 0.83, glucose 154, hemoglobin A1c 9.6, calcium 8.4, magnesium 1.7, AST 22, ALT 13. A TSH from March 01 was 2.895. A vitamin B12 level from 11/28/2022 was 210. Diagnostic Findings I did independently review the CT of the head completed March 01, 2023. The s tudy reveals mild generalized atrophy and chronic microvascular ischemic disease. No acute process. No hemorrhage or subdural collection. PG Care Time/CCT Total # of Minutes Spent Total Time Spent with Patient: Total time spent is greater than 50% in coordination of care (as documented) at patient's floor/unit and/or counseling patient: Coding Level of Care Code 76139 INT INP/OBS CARE 2/55MIN Diagnoses Major neurocognitive disorder F03.90
--- NOTE | 2023-03-04 10:31 | Hospitalist Progress Note ---
Date of Service March 04, 2023 Assessment & Plan (1) Altered mental status: (2) DM (diabetes mellitus), type 2: (3) HTN (hypertension): (4) HLD (hyperlipidemia): Plan Per admitting service note with addendum: This is an 83yo M with a PMH of DM II, HTN, HLD who was brought in by police for mental health evaluation after calling the police accusing his neighbors of stealing from him, and eventually getting agitated and pointing to the boat officer, as well as physically resisting arrest. 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 Mariscal years ago per chart) As per police, the patient has been calling them for the past 6 months with the same accusations, has been found to process multiple firearms, house in disarray Brought in by police for mental health evaluation after calling the police accusing his neighbors of stealing from him, and eventually getting agitated and pointing to the boat officer, as well as physically resisting arrest. Discussed with boat officer who brought the patient to the ER, Corporal Skylar Pate Admitted to medical service for possible UTI UTI has been ruled out Psychiatry service consulted-MoCA score 13 out of 30, recommend neurology evaluation Neurologist consulted: Feels patient has mild to moderate dementia with associated behavioral disorder Recommend vitamin B12 supplementation, will order repeat vitamin B12, last done November 2022 Also recommend starting donepezil [address] Rebollar expressing concern regarding his decision-making capacity and more likely, patient expecting patient will be unable to safely manage his personal or medical affairs manager of global on board, requested to get in touch with the office of aging HYPERTENSION DYSLIPIDEMIA history of nonadherence with medication blood pressure stable overall Continue usual lisinopril 5mg dose DM II A1c 9.6 SSI while in-patient BSG AC HS Resume usual metformin upon discharge DVT Ppx: SQ heparin Code status: FULL Dispo: Pending Admission and Anticipated Discharge Date Admission Date: March 02, 2023 Subjective Follow-up for cognitive impairment versus dementia, etc. Seen sitting in bedside chair, comfortable, not in distress Pleasant, calm and cooperative Oriented to place States he feels fine overall Denies headache, dizziness, chest pain, shortness of breath, abdominal pain No fevers or chills, problems with urination No any other symptoms Review of Systems Review of Systems: all noted and negative except for above Physical Exam Physical Exam: General- oriented x 1-2, not in distress, speaks in sentences with no effort or accessory muscle use Eyes- anicteric Neck- no JVD Lungs- clear breath sounds bilaterally Heart- normal rate, regular rhythm; no murmurs Abdomen- normal bowel sounds, nondistended, soft, nontender Extremities- no pretibial edema, no calf tenderness Neuro- alert, oriented x 1-2; no new gross focal neurologic deficits Skin- warm & dry Results & Data Results & Data Vital Signs (Past 12 Hours) Vital Signs Temp Pulse Resp BP Pulse Ox O2 Del Method 03/04/23 07:55 36.8 C 60 18 145/78 H 98 Room Air all noted and reviewed including below
[2023-03-04] MEDS ORDERED: Patient's ALLERGY Info needs ENTERED SCH (10:45)
--- NOTE | 2023-03-04 14:47 | Psychiatric Progress Note ---
Date of Service March 04, 2023 Impression / Recommendations Impression 83 yo male with a progressive cognitive decline, significant short-term memory deficits which he seems to have some awareness of but doesn't connect that with his paranoia about his things being taken. Although he initially expressed anger re: neighbor, he denies HI. There is no evidence of eric or other psychotic illness that is interfering with his overall medical decision making but his lack of insight into his condition is presenting a significant safety concern in the community. (1) Major neurocognitive disorder: Plan no emergency medication has been indicated case reviewed with Dr. Ibrahim as police do plan to arraign and release and it is unclear how many of his guns have been secured. Reconfirmed that he is not commitable under [place] mental health law. Based on updated assessment by neurology, hospitalist service to be in contact with [facility] about placement. Interval History Identifying Information 83 yo male from [place], seen for initial consult on 03/02/23 hours following an incident with police. Chief Complaint "I'm leaving today right?" Review of Systems Notes patient denied Subjective Subjective neurology consult agreed with dx of dementia given overall presentation, MOCA, lack of other neurologic. Over time patient has been here, although cooperative clearly unable to retain information for long about his condition and remains in denial about his deficits. Patient denied any intent to harm his neighbor and was less focussed on his things being taken but also makes statements like "they treated me wrong" referring to the police and that he does not feel in the wrong or that their should be any consequences. Physical Exam Psychiatric Orientation: alert Apperance: appropriately dressed and appropriately groomed Eye Contact: good eye contact Motor Behavior: no abnormal motor movements Speech: normal rate/rhythm/volume of speech (loud as [place] with poor interpersonal distance) Affect: euthymic affect Mood: no depressed mood Thought Process: + concrete thought process Thought Content: reality based without delusions Suicidal Thoughts: denies suicidal thoughts Homicidal Thoughts: denies homicidal thoughts Hallucinations: no auditory hallucinations and no visual hallucinations Cognition: language grossly intact Insight: + poor insight Judgment: + poor judgement Vital Signs (Past 24 Hours) Last Vital Signs Temp 36.8 C 03/04/23 07:55 Pulse 60 03/04/23 07:55 Resp 18 03/04/23 07:55 BP 145/78 H 03/04/23 07:55 Pulse Ox 98 03/04/23 07:55 O2 Del Method Room Air 03/04/23 07:55 Results & Data ([facility]) Laboratory Results Laboratory Results - last 24 hr 03/03/23 03/03/23 03/04/23 16:42 20:16 07:25 POC Glucose 121 H 184 H 161 H Vitamin B12 03/04/23 03/04/23 10:35 11:21 POC Glucose 218 H Vitamin B12 294 Current Inpatient Medications Current Inpatient Medications: Current Inpatient Medications Acetaminophen (Acetaminophen 325 Mg Tab) 650 mg PO Q4H PRN PRN Reason: pain/fever Stop: 03/31/23 22:33 Aspirin (Aspirin 81 Mg Ectab) 81 mg PO DAILY LAUREN Stop: 04/01/23 08:59 Last Admin: 03/04/23 08:29 Dose: 81 mg Atorvastatin Calcium (Atorvastatin 40 Mg Tab) 40 mg PO DAILY LAUREN Stop: 04/01/23 08:59 Last Admin: 03/04/23 08:28 Dose: 40 mg Dextrose (Dextrose 50% 50 Ml Syringe) 25 - 50 ml IV UD PRN; Protocol PRN Reason: Hypoglycemia Protocol Stop: 03/31/23 18:48 Donepezil HCl (Donepezil Hcl 5 Mg Tab) 5 mg PO HS LAUREN Stop: 04/03/23 20:59 Glucagon (Glucagon For Inj 1 Mg Vial) 1 mg SQ UD PRN; Protocol PRN Reason: Hypoglycemia Protocol Stop: 03/31/23 18:48 Glucose (Glucose 10 Tab/Tube) 4 - 8 tab PO UD PRN; Protocol PRN Reason: Hypoglycemia Treatment Stop: 03/31/23 18:48 Glucose (Glucose 40% Gel 15 Gm Tube) 15 - 30 gm PO UD PRN; Protocol PRN Reason: Hypoglycemia Protocol Stop: 03/31/23 18:48 Heparin Sodium (Porcine) (Heparin Sod 5,000 Unit/0.5 Ml Vial) 5,000 units SQ Q8 LAUREN Stop: 03/31/23 22:33 Last Admin: 03/04/23 13:18 Dose: 5,000 units Insulin Aspart (Insulin Aspart Per Unit Charge) 0 units SC ACHS LAUREN Stop: 03/31/23 20:59 Last Admin: 03/04/23 12:21 Dose: 8 units Lisinopril (Lisinopril 5 Mg Tab) 5 mg PO DAILY LUAREN Stop: 04/01/23 08:59 Last Admin: 08/15/23 08:28 Dose: 5 mg Miscellaneous (Carbohydrates For Hypoglycemia ) 15 - 30 gm PO UD PRN PRN Reason: Hypoglycemia Protocol Stop: 03/31/23 18:48 Ondansetron HCl (Ondansetron Inj 2 Mg/Ml 2 Ml Vial) 4 mg IV Q6H PRN PRN Reason: Nausea Stop: 03/31/23 22:33 Polyethylene Glycol (Polyethylene (Miralax) 17 Gm Pack) 17 gm PO DAILY PRN PRN Reason: Constipation Stop: 03/31/23 22:33
[2023-03-04] MEDS: DONEPEZIL HCL 5 MG TAB PO SCH (21:15)
[2023-03-05] MEDS: HEPARIN SOD 5,000 UNIT/0.5 ML VIAL SQ SCH ×3 (05:10→21:25)
--- NOTE | 2023-03-05 06:29 | Hospitalist Progress Note ---
Date of Service March 05, 2023 delayed entry date of service March 04, 2023 Assessment & Plan (1) Altered mental status: (2) DM (diabetes mellitus), type 2: (3) HTN (hypertension): (4) HLD (hyperlipidemia): Plan Per admitting service note with addendum: This is an 83yo M with a PMH of DM II, HTN, HLD who was brought in by police for mental health evaluation after calling the police accusing his neighbors of stealing from him, and eventually getting agitated and pointing to the crime prevention police officer, as well as physically resisting arrest. 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 Mariscal years ago per chart) As per police, the patient has been calling them for the past 6 months with the same accusations, has been found to process multiple firearms, house in disarray Brought in by police for mental health evaluation after calling the police accusing his neighbors of stealing from him, and eventually getting agitated and pointing to the crime prevention police officer, as well as physically resisting arrest. Discussed with crime prevention police officer who brought the patient to the ER, Corporal Skylar Pate Admitted to medical service for possible UTI UTI has been ruled out Psychiatry service consulted-MoCA score 13 out of 30, recommend neurology evaluation Neurologist consulted: Feels patient has mild to moderate dementia with associated behavioral disorder Recommend vitamin B12 supplementation, will order repeat vitamin B12, last done November 2022 Also recommend starting donepezil [address] Rebollar expressing concern regarding his decision-making capacity and more likely, patient expecting patient will be unable to safely manage his personal or medical affairs merchandise manager on board, requested to get in touch with the office of aging HYPERTENSION DYSLIPIDEMIA history of nonadherence with medication blood pressure stable overall Continue usual lisinopril 5mg dose DM II A1c 9.6 SSI while in-patient BSG AC HS Resume usual metformin upon discharge DVT Ppx: SQ heparin Code status: FULL Dispo: Pending Admission and Anticipated Discharge Date Admission Date: March 02, 2023 Subjective Follow-up for altered mental status, etc. Seen sitting up in chair, comfortable, not in distress Seems to be calm and cooperative Oriented x1-2, answers most questions appropriately But still seems to be forgetful Cannot recall yesterday's conversation States he feels fine overall No dizziness, headache, chest pain, shortness of breath, abdominal pain, nausea vomiting or problems urination bowel movement No any other symptoms Review of Systems Review of Systems: all noted and negative except for above Physical Exam Physical Exam: General- oriented x 1-2, not in distress, speaks in sentences with no effort or accessory muscle use Eyes- anicteric Neck- no JVD Lungs- clear breath sounds bilaterally Heart- normal rate, regular rhythm; no murmurs Abdomen- normal bowel sounds, nondistended, soft, nontender Extremities- no pretibial edema, no calf tenderness Neuro- alert, oriented x 1-2; no gross focal neurologic deficits Skin- warm & dry Results & Data Results & Data Vital Signs (Past 12 Hours) Vital Signs Temp Pulse Resp BP Pulse Ox O2 Del Method 03/04/23 20:54 37.1 C 74 18 134/69 97 Room Air all noted and reviewed including below
[2023-03-05] MEDS: ATORVASTATIN 40 MG TAB PO SCH (08:54)
[2023-03-05] MEDS: lisinopril 5 MG TAB PO SCH (08:54)
[2023-03-05] MEDS: ASPIRIN 81 MG ECTAB PO SCH (08:54)
[2023-03-05] MEDS: INSULIN ASPART PER UNIT CHARGE SC SCH ×4 (09:55→21:30)
--- NOTE | 2023-03-05 13:54 | Hospitalist Progress Note ---
Date of Service March 05, 2023 Assessment & Plan (1) Altered mental status: (2) DM (diabetes mellitus), type 2: (3) HTN (hypertension): (4) HLD (hyperlipidemia): Plan Per previous provider note with addendum: This is an 83yo M with a PMH of DM II, HTN, HLD who was brought in by police for mental health evaluation after calling the police accusing his neighbors of stealing from him, and eventually getting agitated and pointing to the correctional officer, as well as physically resisting arrest. 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 Mariscal years ago per chart) As per police, the patient has been calling them for the past 6 months with the same accusations, has been found to process multiple firearms, house in disarray Brought in by police for mental health evaluation after calling the police accusing his neighbors of stealing from him, and eventually getting agitated and pointing to the correctional officer, as well as physically resisting arrest. Discussed with correctional officer who brought the patient to the ER, Corporal Skylar Pate Admitted to medical service for possible UTI UTI has been ruled out Psychiatry service consulted-MoCA score 13 out of 30, recommend neurology evaluation Neurologist consulted: Feels patient has mild to moderate dementia with associated behavioral disorder Recommend vitamin B12 supplementation Also recommend starting donepezil [address] Rebollar expressing concern regarding his decision-making capacity and more likely, patient expecting patient will be unable to safely manage his personal or medical affairs business analyst manager involved, requested to get in touch with the office of aging HYPERTENSION DYSLIPIDEMIA history of nonadherence with medication blood pressure stable overall Continue usual lisinopril 5mg dose DM II A1c 9.6 SSI while in-patient BSG AC HS Resume usual metformin upon discharge DVT Ppx: SQ heparin Code status: FULL Dispo: Pending - CM and OOA involved Admission and Anticipated Discharge Date Admission Date: March 02, 2023 Subjective Follow-up for cognitive impairment versus dementia, etc. Seen sitting in the bed in NAD, fully dressed - "plans to go home" States he feels fine overall, and has no complaints Denies headache, dizziness, chest pain, shortness of breath, abdominal pain No fevers or chills, problems with urination CM and OOA involved Review of Systems Review of Systems: All systems reviewed & are unremarkable except as noted in Subjective Physical Exam Physical Exam: General- oriented x 1-2, not in distress, speaks in sentences with no effort or accessory muscle use Eyes- anicteric Neck- no JVD Lungs- clear breath sounds bilaterally Heart- normal rate, regular rhythm; no murmurs Abdomen- normal bowel sounds, nondistended, soft, nontender Extremities- no pretibial edema, no calf tenderness Neuro- alert, oriented x 1-2; speech fluent, moves extremities, ambulates in his room Skin- warm & dry Results & Data Results & Data Vital Signs (Past 12 Hours) Vital Signs Temp Pulse Resp BP Pulse Ox O2 Del Method 03/05/23 07:03 36.5 C 68 16 135/77 98 Room Air Medications Administered Current Inpatient Medications Acetaminophen (Acetaminophen 325 Mg Tab) 650 mg PO Q4H PRN PRN Reason: pain/fever Stop: 03/31/23 22:33 Aspirin (Aspirin 81 Mg Ectab) 81 mg PO DAILY LAUREN Stop: 04/01/23 08:59 Last Admin: 03/05/23 08:54 Dose: 81 mg Atorvastatin Calcium (Atorvastatin 40 Mg Tab) 40 mg PO DAILY LAUREN Stop: 04/01/23 08:59 Last Admin: 03/05/23 08:54 Dose: 40 mg Cyanocobalamin (Cyanocobalamin (B-12) 500 Mcg Tablet) 1,000 mcg PO QAM LAUREN Stop: 04/04/23 13:59 Dextrose (Dextrose 50% 50 Ml Syringe) 25 - 50 ml IV UD PRN; Protocol PRN Reason: Hypoglycemia Protocol Stop: 03/31/23 18:48 Donepezil HCl (Donepezil Hcl 5 Mg Tab) 5 mg PO HS LAUREN Stop: 04/03/23 20:59 Last Admin: 03/04/23 21:15 Dose: 5 mg Glucagon (Glucagon For Inj 1 Mg Vial) 1 mg SQ UD PRN; Protocol PRN Reason: Hypoglycemia Protocol Stop: 03/31/23 18:48 Glucose (Glucose 10 Tab/Tube) 4 - 8 tab PO UD PRN; Protocol PRN Reason: Hypoglycemia Treatment Stop: 03/31/23 18:48 Glucose (Glucose 40% Gel 15 Gm Tube) 15 - 30 gm PO UD PRN; Protocol PRN Reason: Hypoglycemia Protocol Stop: 03/31/23 18:48 Heparin Sodium (Porcine) (Heparin Sod 5,000 Unit/0.5 Ml Vial) 5,000 units SQ Q8 LAUREN Stop: 03/31/23 22:33 Last Admin: 03/05/23 13:04 Dose: 5,000 units Insulin Aspart (Insulin Aspart Per Unit Charge) 0 units SC ACHS LAUREN Stop: 03/31/23 20:59 Last Admin: 03/05/23 12:59 Dose: 2 units Lisinopril (Lisinopril 5 Mg Tab) 5 mg PO DAILY LAUREN Stop: 04/01/23 08:59 Last Admin: 03/05/23 08:54 Dose: 5 mg Miscellaneous (Carbohydrates For Hypoglycemia ) 15 - 30 gm PO UD PRN PRN Reason: Hypoglycemia Protocol Stop: 03/31/23 18:48 Ondansetron HCl (Ondansetron Inj 2 Mg/Ml 2 Ml Vial) 4 mg IV Q6H PRN PRN Reason: Nausea Stop: 03/31/23 22:33 Polyethylene Glycol (Polyethylene (Miralax) 17 Gm Pack) 17 gm PO DAILY PRN PRN Reason: Constipation Stop: 03/31/23 22:33
[2023-03-05] MEDS: CYANOCOBALAMIN (B-12) 500 MCG TABLET PO SCH (15:29)
[2023-03-05] MEDS: DONEPEZIL HCL 5 MG TAB PO SCH (21:25)
[2023-03-06] MEDS: HEPARIN SOD 5,000 UNIT/0.5 ML VIAL SQ SCH ×3 (06:30→21:07)
[2023-03-06] MEDS: INSULIN ASPART PER UNIT CHARGE SC SCH ×4 (08:56→21:07)
[2023-03-06] MEDS: ATORVASTATIN 40 MG TAB PO SCH (08:57)
[2023-03-06] MEDS: lisinopril 5 MG TAB PO SCH (08:57)
[2023-03-06] MEDS: CYANOCOBALAMIN (B-12) 500 MCG TABLET PO SCH (08:57)
[2023-03-06] MEDS: ASPIRIN 81 MG ECTAB PO SCH (08:57)
[2023-03-06 09:26] LABS: Calcium 9.5 mg/dl (8.6-10.3); Creatinine Clr Calc Pharmacy 58.5 ml/min; Est GFR (African American) 93.2 ml/min; Est GFR (Non-African American) 80.4 ml/min; Magnesium 1.5 mg/dl (1.7-2.4); Phosphorus 2.9 mg/dl (2.5-4.9); Potassium 3.9 mmol/L (3.5-5.1)
[2023-03-06] MEDS ORDERED: MAGNESIUM SULFATE / D5W 1 GM/100 ML BAG IV ONE (19:04)
--- NOTE | 2023-03-06 19:05 | Hospitalist Progress Note ---
Date of Service March 06, 2023 Assessment & Plan (1) Altered mental status: (2) DM (diabetes mellitus), type 2: (3) HTN (hypertension): (4) HLD (hyperlipidemia): Plan Per previous provider note with addendum: This is an 83yo M with a PMH of DM II, HTN, HLD who was brought in by police for mental health evaluation after calling the police accusing his neighbors of stealing from him, and eventually getting agitated and pointing to the secretary of police, as well as physically resisting arrest. 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 Mariscal years ago per chart) As per police, the patient has been calling them for the past 6 months with the same accusations, has been found to process multiple firearms, house in disarray Brought in by police for mental health evaluation after calling the police accusing his neighbors of stealing from him, and eventually getting agitated and pointing to the secretary of police, as well as physically resisting arrest. Discussed with secretary of police who brought the patient to the ER, Corporal Skylar Pate Admitted to medical service for possible UTI UTI has been ruled out Psychiatry service consulted-MoCA score 13 out of 30, recommend neurology evaluation Neurologist consulted: Feels patient has mild to moderate dementia with associated behavioral disorder Recommend vitamin B12 supplementation Also recommend starting donepezil [address] Rebollar expressing concern regarding his decision-making capacity and more likely, patient expecting patient will be unable to safely manage his personal or medical affairs manager validation and office of aging involved - plan for court re: guardianship tmrw (03/07/23) HYPERTENSION DYSLIPIDEMIA history of nonadherence with medication blood pressure stable overall Continue usual lisinopril 5mg dose DM II A1c 9.6 SSI while in-patient BSG AC HS Resume usual metformin upon discharge DVT Ppx: SQ heparin Code status: FULL Dispo: Pending - CM and OOA involved Admission and Anticipated Discharge Date Admission Date: March 02, 2023 Subjective Follow-up for cognitive impairment versus dementia, etc. Seen sitting in the chair in NAD States he feels fine overall, and has no complaints Denies headache, dizziness, chest pain, shortness of breath, abdominal pain No fevers or chills, problems with urination CM and OOA involved - plan for court meeting re: guardianship tmrw Review of Systems Review of Systems: All systems reviewed & are unremarkable except as noted in Subjective Physical Exam Physical Exam: General- oriented x 1-2, not in distress, speaks in sentences with no effort or accessory muscle use Eyes- anicteric Neck- no JVD Lungs- clear breath sounds bilaterally Heart- normal rate, regular rhythm; no murmurs Abdomen- normal bowel sounds, nondistended, soft, nontender Extremities- no pretibial edema, no calf tenderness Neuro- alert, oriented x 1-2; speech fluent, moves extremities, ambulates in his room Skin- warm & dry Results & Data Results & Data Vital Signs (Past 12 Hours) Vital Signs Temp Pulse Resp BP BP Pulse Ox O2 Del Method 03/06/23 14:19 37.0 C 73 17 117/75 97 Room Air 03/06/23 07:51 36.5 C 62 15 165/83 H 99 Room Air Laboratory Results 03/06/23 03/06/23 03/06/23 Range/Units 16:36 11:39 08:13 Sodium 139 (136-145) mmol/L Potassium 3.9 (3.5-5.1) mmol/L Chloride 107 (98-107) mmol/L Carbon Dioxide 26 (21-32) mmol/L Anion Gap 6 (3-11) BUN 21 (6-23) mg/dl Creatinine 0.84 (0.6-1.4) mg/dl Est Cr Clr Drug Dosing 58.5 ml/min Est GFR ( Amer) 93.2 ml/min Est GFR (Non-Af Amer) 80.4 ml/min BUN/Creatinine Ratio 25.0 H (10-20) Glucose 173 H (70-99(Fasting)) mg/dl POC Glucose 162 H 204 H (70-99) mg/dl Calcium 9.5 (8.6-10.3) mg/dl Phosphorus 2.9 (2.5-4.9) mg/dl Magnesium 1.5 L (1.7-2.4) mg/dl 03/06/23 03/05/23 Range/Units 07:50 21:00 Sodium (136-145) mmol/L Potassium (3.5-5.1) mmol/L Chloride (98-107) mmol/L Carbon Dioxide (21-32) mmol/L Anion Gap (3-11) BUN (6-23) mg/dl Creatinine (0.6-1.4) mg/dl Est Cr Clr Drug Dosing ml/min Est GFR ( Amer) ml/min Est GFR (Non-Af Amer) ml/min BUN/Creatinine Ratio (10-20) Glucose (70-99(Fasting)) mg/dl POC Glucose 156 H 189 H (70-99) mg/dl Calcium (8.6-10.3) mg/dl Phosphorus (2.5-4.9) mg/dl Magnesium (1.7-2.4) mg/dl Medications Administered Current Inpatient Medications Acetaminophen (Acetaminophen 325 Mg Tab) 650 mg PO Q4H PRN PRN Reason: pain/fever Stop: 03/31/23 22:33 Aspirin (Aspirin 81 Mg Ectab) 81 mg PO DAILY LAUREN Stop: 04/01/23 08:59 Last Admin: 03/06/23 08:57 Dose: 81 mg Atorvastatin Calcium (Atorvastatin 40 Mg Tab) 40 mg PO DAILY LAUREN Stop: 04/01/23 08:59 Last Admin: 03/06/23 08:57 Dose: 40 mg Cyanocobalamin (Cyanocobalamin (B-12) 500 Mcg Tablet) 1,000 mcg PO QAM LAUREN Stop: 04/04/23 13:59 Last Admin: 03/06/23 08:57 Dose: 1,000 mcg Dextrose (Dextrose 50% 50 Ml Syringe) 25 - 50 ml IV UD PRN; Protocol PRN Reason: Hypoglycemia Protocol Stop: 03/31/23 18:48 Donepezil HCl (Donepezil Hcl 5 Mg Tab) 5 mg PO HS LAUREN Stop: 04/03/23 20:59 Last Admin: 03/05/23 21:25 Dose: 5 mg Glucagon (Glucagon For Inj 1 Mg Vial) 1 mg SQ UD PRN; Protocol PRN Reason: Hypoglycemia Protocol Stop: 03/31/23 18:48 Glucose (Glucose 10 Tab/Tube) 4 - 8 tab PO UD PRN; Protocol PRN Reason: Hypoglycemia Treatment Stop: 03/31/23 18:48 Glucose (Glucose 40% Gel 15 Gm Tube) 15 - 30 gm PO UD PRN; Protocol PRN Reason: Hypoglycemia Protocol Stop: 03/31/23 18:48 Heparin Sodium (Porcine) (Heparin Sod 5,000 Unit/0.5 Ml Vial) 5,000 units SQ Q8 LAUREN Stop: 03/31/23 22:33 Last Admin: 03/06/23 12:48 Dose: 5,000 units Magnesium Sulfate/Dextrose (Magnesium Sulfate / D5w) 1 gm in 100 mls @ 50 mls/hr IV ONE ONE Stop: 03/06/23 21:03 Insulin Aspart (Insulin Aspart Per Unit Charge) 0 units SC ACHS LAUREN Stop: 03/31/23 20:59 Last Admin: 03/06/23 17:27 Dose: 4 units Lisinopril (Lisinopril 5 Mg Tab) 5 mg PO DAILY LAUREN Stop: 04/01/23 08:59 Last Admin: 03/06/23 08:57 Dose: 5 mg Magnesium Oxide (Magnesium Oxide 400 Mg Tab) 400 mg PO BID [facility] Stop: 04/05/23 20:59 Miscellaneous (Carbohydrates For Hypoglycemia ) 15 - 30 gm PO UD PRN PRN Reason: Hypoglycemia Protocol Stop: 03/31/23 18:48 Ondansetron HCl (Ondansetron Inj 2 Mg/Ml 2 Ml Vial) 4 mg IV Q6H PRN PRN Reason: Nausea Stop: 03/31/23 22:33 Polyethylene Glycol (Polyethylene (Miralax) 17 Gm Pack) 17 gm PO DAILY PRN PRN Reason: Constipation Stop: 03/31/23 22:33
[2023-03-06] MEDS: DONEPEZIL HCL 5 MG TAB PO SCH (21:02)
[2023-03-06] MEDS: MAGNESIUM OXIDE 400 MG TAB PO SCH (21:02)
[2023-03-07] MEDS: HEPARIN SOD 5,000 UNIT/0.5 ML VIAL SQ SCH ×3 (05:10→20:52)
[2023-03-07 08:13] LABS: Hematocrit (blood only) 38.6 % (42.0-52.0); Hemoglobin 13.8 g/dl (14.0-18.0); Mean Corpuscular Hemoglobin 29.8 pg (25.0-34.0); Mean Corpuscular Hgb Conc 35.8 g/dL (32.0-36.0); Mean Corpuscular Volume 83.4 fL (80.0-100.0); Mean Platelet Volume 10.4 fL (9.4-12.4); Platelet Count 222 K/uL (130-400); RDW Coefficient of Variation 12.8 % (11.5-14.5); RDW Standard Deviation 38.6 fL (36.4-46.3); Red Blood Count 4.63 M/uL (4.70-6.10)
[2023-03-07 08:36] LABS: BUN Creatinine Ratio 25.8 (10-20); Calcium 8.8 mg/dl (8.6-10.3); Creatinine Clr Calc Pharmacy 52.9 ml/min; Est GFR (African American) 87.1 ml/min; Est GFR (Non-African American) 75.1 ml/min; Magnesium 1.6 mg/dl (1.7-2.4); Potassium 4.1 mmol/L (3.5-5.1)
[2023-03-07] MEDS: lisinopril 5 MG TAB PO SCH (08:38)
[2023-03-07] MEDS: ASPIRIN 81 MG ECTAB PO SCH (08:38)
[2023-03-07] MEDS: MAGNESIUM OXIDE 400 MG TAB PO SCH ×2 (08:38→20:51)
[2023-03-07] MEDS: CYANOCOBALAMIN (B-12) 500 MCG TABLET PO SCH (08:38)
[2023-03-07] MEDS: ATORVASTATIN 40 MG TAB PO SCH (08:38)
[2023-03-07] MEDS: INSULIN ASPART PER UNIT CHARGE SC SCH ×4 (08:46→21:25)
[2023-03-07] MEDS ORDERED: MAGNESIUM SULFATE / D5W 1 GM/100 ML BAG IV ONE (11:52)
--- NOTE | 2023-03-07 11:52 | Hospitalist Progress Note ---
Date of Service March 07, 2023 Assessment & Plan (1) Altered mental status: (2) DM (diabetes mellitus), type 2: (3) HTN (hypertension): (4) HLD (hyperlipidemia): Plan Per previous provider note with addendum: This is an 83yo M with a PMH of DM II, HTN, HLD who was brought in by police for mental health evaluation after calling the police accusing his neighbors of stealing from him, and eventually getting agitated and pointing to the special police, as well as physically resisting arrest. 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 Mariscal years ago per chart) As per police, the patient has been calling them for the past 6 months with the same accusations, has been found to process multiple firearms, house in disarray Brought in by police for mental health evaluation after calling the police accusing his neighbors of stealing from him, and eventually getting agitated and pointing to the special police, as well as physically resisting arrest. Discussed with special police who brought the patient to the ER, Corporal Skylar Pate Admitted to medical service for possible UTI UTI has been ruled out Psychiatry service consulted-MoCA score 13 out of 30, recommend neurology evaluation Neurologist consulted: Feels patient has mild to moderate dementia with associated behavioral disorder Recommend vitamin B12 supplementation Also recommend starting donepezil [address] Rebollar expressing concern regarding his decision-making capacity and more likely, patient expecting patient will be unable to safely manage his personal or medical affairs 03/04/2023 - Per Dr. Ibrahim: In light of neurologist recommendation that patient has dementia with paranoid behavior, decision making capacity both personal medical and question, patient's disposition thoughtfully being planned. Again discussed over the phone in detail with psychiatry service, and Corporal Skylar Pate who brought the patient initially for mental health evaluation As per Dr. Palumbo from psychiatry service, patient does not meet criteria for 302 petition. However, patient has questionable decision-making capacity at this point. Releasing him from the hospital, and subsequently returning home Poses great risk for the patient and the community at this point as patient possesses firearms which have not been secured at this point. Upon my discussion with Corporal Pate, she shares the same concern. Relayed this great concern as well as details of the case to director of casework services Dr. Jeanie Fountain whom I visited in her office. Plan is to contact office of aging to relay findings of evaluation while patient admitted. She has spoken with office of aging payroll representative. They recommend emergency protective service for this patient. In the meantime, if patient expresses to sign AGAINST MEDICAL ADVICE, 911 should be immediately called, requesting office of aging to provide emergency protective service for this patient. He is not allowed to leave the hospital premises in any circumstance without office of aging permission. Explained to patient that we are awaiting office of aging evaluation before he can be released. clubhouse manager and office of aging involved - plan for court re: guardianship today (03/07/23) HYPERTENSION DYSLIPIDEMIA history of nonadherence with medication blood pressure stable overall Continue usual lisinopril 5mg dose DM II A1c 9.6 SSI while in-patient BSG AC HS Resume usual metformin upon discharge DVT Ppx: SQ heparin Code status: FULL Dispo: Pending - CM and OOA involved Admission and Anticipated Discharge Date Admission Date: March 02, 2023 Subjective Follow-up for cognitive impairment versus dementia, etc. Seen sitting in the chair in NAD States he feels fine overall, and has no complaints Denies headache, dizziness, chest pain, shortness of breath, abdominal pain No fevers or chills, problems with urination Pt needs to be prompted to answer questions. He feels he should be going home soon. CM and OOA involved - plan for court meeting re: guardianship today Review of Systems Review of Systems: All systems reviewed & are unremarkable except as noted in Subjective Physical Exam Physical Exam: General- slim elderly M in NAD Eyes- anicteric Neck- no JVD Lungs- clear breath sounds bilaterally Heart- normal rate, regular rhythm; no murmurs Abdomen- normal bowel sounds, nondistended, soft, nontender Extremities- no pretibial edema, moves extremities Neuro- awake and alert, able to answer simple questions but needs to be prompted several times; speech fluent, moves extremities, ambulates in his room Skin- warm & dry Results & Data Results & Data Vital Signs (Past 12 Hours) Vital Signs Temp Pulse Resp BP Pulse Ox O2 Del Method 03/07/23 08:37 69 03/07/23 07:52 36.2 C L 49 L 16 120/63 98 Room Air Laboratory Results 03/07/23 03/07/23 03/07/23 Range/Units 11:28 07:55 07:34 WBC (4.8-10.8) K/ul RBC (4.70-6.10) M/uL Hgb (14.0-18.0) g/dl Hct (42.0-52.0) % MCV (80.0-100.0) fL MCH (25.0-34.0) pg MCHC (32.0-36.0) g/dL RDW Std Deviation (36.4-46.3) fL RDW Coeff of Angela (11.5-14.5) % Plt Count (130-400) K/uL MPV (9.4-12.4) fL Sodium 138 (136-145) mmol/L Potassium 4.1 (3.5-5.1) mmol/L Chloride 107 (98-107) mmol/L Carbon Dioxide 27 (21-32) mmol/L Anion Gap 4 (3-11) BUN 24 H (6-23) mg/dl Creatinine 0.93 (0.6-1.4) mg/dl Est Cr Clr Drug Dosing 52.9 ml/min Est GFR ( Amer) 87.1 ml/min Est GFR (Non-Af Amer) 75.1 ml/min BUN/Creatinine Ratio 25.8 H (10-20) Glucose 191 H (70-99(Fasting)) mg/dl POC Glucose 279 H 177 H (70-99) mg/dl Calcium 8.8 (8.6-10.3) mg/dl Magnesium 1.6 L (1.7-2.4) mg/dl 03/07/23 03/06/23 03/06/23 Range/Units 07:34 20:26 16:36 WBC 4.50 L (4.8-10.8) K/ul RBC 4.63 L (4.70-6.10) M/uL Hgb 13.8 L (14.0-18.0) g/dl Hct 38.6 L (42.0-52.0) % MCV 83.4 (80.0-100.0) fL MCH 29.8 (25.0-34.0) pg MCHC 35.8 (32.0-36.0) g/dL RDW Std Deviation 38.6 (36.4-46.3) fL RDW Coeff of Angela 12.8 (11.5-14.5) % Plt Count 222 (130-400) K/uL MPV 10.4 (9.4-12.4) fL Sodium (136-145) mmol/L Potassium (3.5-5.1) mmol/L Chloride (98-107) mmol/L Carbon Dioxide (21-32) mmol/L Anion Gap (3-11) BUN (6-23) mg/dl Creatinine (0.6-1.4) mg/dl Est Cr Clr Drug Dosing ml/min Est GFR ( Amer) ml/min Est GFR (Non-Af Amer) ml/min BUN/Creatinine Ratio (10-20) Glucose (70-99(Fasting)) mg/dl POC Glucose 225 H 162 H (70-99) mg/dl Calcium (8.6-10.3) mg/dl Magnesium (1.7-2.4) mg/dl Medications Administered Current Inpatient Medications Acetaminophen (Acetaminophen 325 Mg Tab) 650 mg PO Q4H PRN PRN Reason: pain/fever Stop: 03/31/23 22:33 Aspirin (Aspirin 81 Mg Ectab) 81 mg PO DAILY LAUREN Stop: 04/01/23 08:59 Last Admin: 03/07/23 08:38 Dose: 81 mg Atorvastatin Calcium (Atorvastatin 40 Mg Tab) 40 mg PO DAILY LAUREN Stop: 04/01/23 08:59 Last Admin: 03/07/23 08:38 Dose: 40 mg Cyanocobalamin (Cyanocobalamin (B-12) 500 Mcg Tablet) 1,000 mcg PO QAM LAUREN Stop: 04/04/23 13:59 Last Admin: 03/07/23 08:38 Dose: 1,000 mcg Dextrose (Dextrose 50% 50 Ml Syringe) 25 - 50 ml IV UD PRN; Protocol PRN Reason: Hypoglycemia Protocol Stop: 03/31/23 18:48 Donepezil HCl (Donepezil Hcl 5 Mg Tab) 5 mg PO HS [facility] Stop: 04/03/23 20:59 Last Admin: 03/06/23 21:02 Dose: 5 mg Glucagon (Glucagon For Inj 1 Mg Vial) 1 mg SQ UD PRN; Protocol PRN Reason: Hypoglycemia Protocol Stop: 03/31/23 18:48 Glucose (Glucose 10 Tab/Tube) 4 - 8 tab PO UD PRN; Protocol PRN Reason: Hypoglycemia Treatment Stop: 03/31/23 18:48 Glucose (Glucose 40% Gel 15 Gm Tube) 15 - 30 gm PO UD PRN; Protocol PRN Reason: Hypoglycemia Protocol Stop: 03/31/23 18:48 Heparin Sodium (Porcine) (Heparin Sod 5,000 Unit/0.5 Ml Vial) 5,000 units SQ Q8 LAUREN Stop: 03/31/23 22:33 Last Admin: 03/07/23 05:10 Dose: 5,000 units Insulin Aspart (Insulin Aspart Per Unit Charge) 0 units SC ACHS LAUREN Stop: 03/31/23 20:59 Last Admin: 03/07/23 08:46 Dose: 4 units Lisinopril (Lisinopril 5 Mg Tab) 5 mg PO DAILY LAUREN Stop: 04/01/23 08:59 Last Admin: 03/07/23 08:38 Dose: 5 mg Magnesium Oxide (Magnesium Oxide 400 Mg Tab) 400 mg PO BID LAUREN Stop: 04/05/23 20:59 Last Admin: 03/07/23 08:38 Dose: 400 mg Miscellaneous (Carbohydrates For Hypoglycemia ) 15 - 30 gm PO UD PRN PRN Reason: Hypoglycemia Protocol Stop: 03/31/23 18:48 Ondansetron HCl (Ondansetron Inj 2 Mg/Ml 2 Ml Vial) 4 mg IV Q6H PRN PRN Reason: Nausea Stop: 03/31/23 22:33 Polyethylene Glycol (Polyethylene (Miralax) 17 Gm Pack) 17 gm PO DAILY PRN PRN Reason: Constipation Stop: 03/31/23 22:33
[2023-03-07] MEDS: DONEPEZIL HCL 5 MG TAB PO SCH (20:51)
[2023-03-08] MEDS: HEPARIN SOD 5,000 UNIT/0.5 ML VIAL SQ SCH ×3 (05:36→21:23)
--- NOTE | 2023-03-08 08:25 | Hospitalist Progress Note ---
Date of Service March 08, 2023 Assessment & Plan (1) Altered mental status: (2) DM (diabetes mellitus), type 2: (3) HTN (hypertension): (4) HLD (hyperlipidemia): Plan Per previous provider note with addendum: This is an 83yo M with a PMH of DM II, HTN, HLD who was brought in by police for mental health evaluation after calling the police accusing his neighbors of stealing from him, and eventually getting agitated and pointing to the security flex officer, as well as physically resisting arrest. 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 Mariscal years ago per chart) As per police, the patient has been calling them for the past 6 months with the same accusations, has been found to process multiple firearms, house in disarray Brought in by police for mental health evaluation after calling the police accusing his neighbors of stealing from him, and eventually getting agitated and pointing to the security flex officer, as well as physically resisting arrest. Discussed with security flex officer who brought the patient to the ER, Corporal Skylar Pate Admitted to medical service for possible UTI UTI has been ruled out Psychiatry service consulted-MoCA score 13 out of 30, recommend neurology evaluation Neurologist consulted: Feels patient has mild to moderate dementia with associated behavioral disorder Recommend vitamin B12 supplementation Also recommend starting donepezil [address] Rebollar expressing concern regarding his decision-making capacity and more likely, patient expecting patient will be unable to safely manage his personal or medical affairs 03/04/2023 - Per Dr. Ibrahim: In light of neurologist recommendation that patient has dementia with paranoid behavior, decision making capacity both personal medical and question, patient's disposition thoughtfully being planned. Again discussed over the phone in detail with psychiatry service, and Corporal Skylar Pate who brought the patient initially for mental health evaluation As per Dr. Palumbo from psychiatry service, patient does not meet criteria for 302 petition. However, patient has questionable decision-making capacity at this point. Releasing him from the hospital, and subsequently returning home Poses great risk for the patient and the community at this point as patient possesses firearms which have not been secured at this point. Upon my discussion with Corporal Pate, she shares the same concern. Relayed this great concern as well as details of the case to foster care case manager Dr. Jeanie Fountain whom I visited in her office. Plan is to contact office of aging to relay findings of evaluation while patient admitted. She has spoken with office of aging statement services representative. They recommend emergency protective service for this patient. In the meantime, if patient expresses to sign AGAINST MEDICAL ADVICE, 911 should be immediately called, requesting office of aging to provide emergency protective service for this patient. He is not allowed to leave the hospital premises in any circumstance without office of aging permission. Explained to patient that we are awaiting office of aging evaluation before he can be released. manager building and office of aging involved - court meeting re: guardianship on (03/07/23) HYPERTENSION DYSLIPIDEMIA history of nonadherence with medication blood pressure stable overall Continue usual lisinopril 5mg dose DM II A1c 9.6 SSI while in-patient BSG AC HS Resume usual metformin upon discharge DVT Ppx: SQ heparin Code status: FULL Dispo: Pending - CM and OOA involved Admission and Anticipated Discharge Date Admission Date: March 02, 2023 Subjective Follow-up for cognitive impairment versus dementia, etc. Pt walking in his room in [facility] He thinks he is in [facility]. Showed him the white board on the wall with the sign of [facility] on it. He feels he should be going home. States he feels fine overall, and has no complaints Denies headache, dizziness, chest pain, shortness of breath, abdominal pain No fevers or chills, problems with urination CM and OOA involved - court meeting yesterday re: guardianship Review of Systems Review of Systems: All systems reviewed & are unremarkable except as noted in Subjective Physical Exam Physical Exam: General- slim elderly M in NAD Eyes- anicteric Neck- no JVD Lungs- clear breath sounds bilaterally Heart- normal rate, regular rhythm; no murmurs Abdomen- normal bowel sounds, nondistended, soft, nontender Extremities- no pretibial edema, moves extremities Neuro- awake and alert, he is not oriented to place. able to answer simple questions, speech fluent, moves extremities, ambulates in his room Skin- warm & dry Results & Data Results & Data Vital Signs (Past 12 Hours) Vital Signs Temp Pulse Resp BP Pulse Ox O2 Del Method 03/08/23 05:47 36.7 C 55 L 16 159/90 H 99 Room Air 03/07/23 20:44 36.5 C 64 18 157/77 H 98 Room Air Medications Administered Current Inpatient Medications Acetaminophen (Acetaminophen 325 Mg Tab) 650 mg PO Q4H PRN PRN Reason: pain/fever Stop: 03/31/23 22:33 Aspirin (Aspirin 81 Mg Ectab) 81 mg PO DAILY LAUREN Stop: 04/01/23 08:59 Last Admin: 03/07/23 08:38 Dose: 81 mg Atorvastatin Calcium (Atorvastatin 40 Mg Tab) 40 mg PO DAILY LAUREN Stop: 04/01/23 08:59 Last Admin: 03/07/23 08:38 Dose: 40 mg Cyanocobalamin (Cyanocobalamin (B-12) 500 Mcg Tablet) 1,000 mcg PO QAM LAUREN Stop: 04/04/23 13:59 Last Admin: 03/07/23 08:38 Dose: 1,000 mcg Dextrose (Dextrose 50% 50 Ml Syringe) 25 - 50 ml IV UD PRN; Protocol PRN Reason: Hypoglycemia Protocol Stop: 03/31/23 18:48 Donepezil HCl (Donepezil Hcl 5 Mg Tab) 5 mg PO HS LAUREN Stop: 04/03/23 20:59 Last Admin: 03/07/23 20:51 Dose: 5 mg Glucagon (Glucagon For Inj 1 Mg Vial) 1 mg SQ UD PRN; Protocol PRN Reason: Hypoglycemia Protocol Stop: 03/31/23 18:48 Glucose (Glucose 10 Tab/Tube) 4 - 8 tab PO UD PRN; Protocol PRN Reason: Hypoglycemia Treatment Stop: 03/31/23 18:48 Glucose (Glucose 40% Gel 15 Gm Tube) 15 - 30 gm PO UD PRN; Protocol PRN Reason: Hypoglycemia Protocol Stop: 03/31/23 18:48 Heparin Sodium (Porcine) (Heparin Sod 5,000 Unit/0.5 Ml Vial) 5,000 units SQ Q8 LAUREN Stop: 03/31/23 22:33 Last Admin: 03/08/23 05:36 Dose: Not Given Insulin Aspart (Insulin Aspart Per Unit Charge) 0 units SC ACHS LAUREN Stop: 03/31/23 20:59 Last Admin: 03/07/23 21:25 Dose: Not Given Lisinopril (Lisinopril 5 Mg Tab) 5 mg PO DAILY LAUREN Stop: 04/01/23 08:59 Last Admin: 03/07/23 08:38 Dose: 5 mg Magnesium Oxide (Magnesium Oxide 400 Mg Tab) 400 mg PO BID LAUREN Stop: 04/05/23 20:59 Last Admin: 03/07/23 20:51 Dose: 400 mg Miscellaneous (Carbohydrates For Hypoglycemia ) 15 - 30 gm PO UD PRN PRN Reason: Hypoglycemia Protocol Stop: 03/31/23 18:48 Ondansetron HCl (Ondansetron Inj 2 Mg/Ml 2 Ml Vial) 4 mg IV Q6H PRN PRN Reason: Nausea Stop: 03/31/23 22:33 Polyethylene Glycol (Polyethylene (Miralax) 17 Gm Pack) 17 gm PO DAILY PRN PRN Reason: Constipation Stop: 03/31/23 22:33
[2023-03-08] MEDS: ASPIRIN 81 MG ECTAB PO SCH (08:45)
[2023-03-08] MEDS: ATORVASTATIN 40 MG TAB PO SCH (08:45)
[2023-03-08] MEDS: CYANOCOBALAMIN (B-12) 500 MCG TABLET PO SCH (08:45)
[2023-03-08] MEDS: lisinopril 5 MG TAB PO SCH (08:45)
[2023-03-08] MEDS: MAGNESIUM OXIDE 400 MG TAB PO SCH ×2 (08:45→21:23)
[2023-03-08] MEDS: INSULIN ASPART PER UNIT CHARGE SC SCH ×4 (08:46→21:15)
[2023-03-08] MEDS: THIAMINE HCL 100 MG TAB PO SCH (14:20)
[2023-03-08] MEDS: DONEPEZIL HCL 5 MG TAB PO SCH (21:23)
[2023-03-09] MEDS: HEPARIN SOD 5,000 UNIT/0.5 ML VIAL SQ SCH ×3 (05:02→20:35)
[2023-03-09] MEDS: ASPIRIN 81 MG ECTAB PO SCH (08:02)
[2023-03-09] MEDS: CYANOCOBALAMIN (B-12) 500 MCG TABLET PO SCH (08:02)
[2023-03-09] MEDS: THIAMINE HCL 100 MG TAB PO SCH (08:02)
[2023-03-09] MEDS: lisinopril 5 MG TAB PO SCH (08:02)
[2023-03-09] MEDS: INSULIN ASPART PER UNIT CHARGE SC SCH ×4 (08:02→20:36)
[2023-03-09] MEDS: MAGNESIUM OXIDE 400 MG TAB PO SCH ×2 (08:02→20:35)
[2023-03-09] MEDS: ATORVASTATIN 40 MG TAB PO SCH (08:02)
--- NOTE | 2023-03-09 16:27 | Hospitalist Progress Note ---
Date of Service March 09, 2023 Assessment & Plan (1) Altered mental status: (2) DM (diabetes mellitus), type 2: (3) HTN (hypertension): (4) HLD (hyperlipidemia): Plan Per previous provider note with addendum: This is an 83yo M with a PMH of DM II, HTN, HLD who was brought in by police for mental health evaluation after calling the police accusing his neighbors of stealing from him, and eventually getting agitated and pointing to the police officer crime prevention, as well as physically resisting arrest. 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 Mariscal years ago per chart) As per police, the patient has been calling them for the past 6 months with the same accusations, has been found to process multiple firearms, house in disarray Brought in by police for mental health evaluation after calling the police accusing his neighbors of stealing from him, and eventually getting agitated and pointing to the police officer crime prevention, as well as physically resisting arrest. Discussed with police officer crime prevention who brought the patient to the ER, Corporal Skylar Pate Admitted to medical service for possible UTI UTI has been ruled out Psychiatry service consulted-MoCA score 13 out of 30, recommend neurology evaluation Neurologist consulted: Feels patient has mild to moderate dementia with associated behavioral disorder Recommend vitamin B12 supplementation Also recommend starting donepezil [address] Rebollar expressing concern regarding his decision-making capacity and more likely, patient expecting patient will be unable to safely manage his personal or medical affairs 03/04/2023 - Per Dr. Ibrahim: In light of neurologist recommendation that patient has dementia with paranoid behavior, decision making capacity both personal medical and question, patient's disposition thoughtfully being planned. Again discussed over the phone in detail with psychiatry service, and Corporal Skylar Pate who brought the patient initially for mental health evaluation As per Dr. Palumbo from psychiatry service, patient does not meet criteria for 302 petition. However, patient has questionable decision-making capacity at this point. Relea sing him from the hospital, and subsequently returning home Poses great risk for the patient and the community at this point as patient possesses firearms which have not been secured at this point. Upon my discussion with Corporal Pate, she shares the same concern. Relayed this great concern as well as details of the case to high risk case manager Dr. Jeanie Fountain whom I visited in her office. Plan is to contact office of aging to relay findings of evaluation while patient admitted. She has spoken with office of aging support representative. They recommend emergency protective service for this patient. In the meantime, if patient expresses to sign AGAINST MEDICAL ADVICE, 911 should be immediately called, requesting office of aging to provide emergency protective service for this patient. He is not allowed to leave the hospital premises in any circumstance without office of aging permission. Explained to patient that we are awaiting office of aging evaluation before he can be released. sr community manager and office of aging involved - court meeting re: guardianship on (03/07/23) HYPERTENSION DYSLIPIDEMIA history of nonadherence with medication blood pressure stable overall Continue usual lisinopril 5mg dose DM II A1c 9.6 SSI while in-patient BSG AC HS Resume usual metformin upon discharge DVT Ppx: SQ heparin Code status: FULL Dispo: Pending - CM and OOA involved Admission and Anticipated Discharge Date Admission Date: March 02, 2023 Subjective Follow-up for cognitive impairment versus dementia, etc. Pt is sitting in his chair in NAD Says he had family / friends visiting today and he feels he should be going home. States he feels fine overall, and has no complaints Denies headache, dizziness, chest pain, shortness of breath, abdominal pain No fevers or chills, problems with urination CM and OOA involved - court meeting was on Friday re: guardianship Review of Systems Review of Systems: All systems reviewed & are unremarkable except as noted in Subjective Physical Exam Physical Exam: General- slim elderly M in NAD Eyes- anicteric Neck- no JVD Lungs- clear breath sounds bilaterally Heart- normal rate, regular rhythm; no murmurs Abdomen- normal bowel sounds, nondistended, soft, nontender Extremities- no pretibial edema, moves extremities Neuro- awake and alert, he is not oriented to place. able to answer simple questions, speech fluent, moves extremities, ambulates in his room Skin- warm & dry Results & Data Results & Data Vital Signs (Past 12 Hours) Vital Signs Temp Pulse Resp BP Pulse Ox O2 Del Method 03/09/23 15:06 36.7 C 81 16 98/65 L 96 Room Air 03/09/23 07:35 Room Air 03/09/23 07:26 36.7 C 65 16 144/82 H 96 Room Air
[2023-03-09] MEDS: DONEPEZIL HCL 5 MG TAB PO SCH (20:35)
[2023-03-10] MEDS: HEPARIN SOD 5,000 UNIT/0.5 ML VIAL SQ SCH ×3 (05:45→21:19)
[2023-03-10] MEDS: CYANOCOBALAMIN (B-12) 500 MCG TABLET PO SCH (08:38)
[2023-03-10] MEDS: lisinopril 5 MG TAB PO SCH (08:38)
[2023-03-10] MEDS: MAGNESIUM OXIDE 400 MG TAB PO SCH ×2 (08:38→21:22)
[2023-03-10] MEDS: ASPIRIN 81 MG ECTAB PO SCH (08:38)
[2023-03-10] MEDS: THIAMINE HCL 100 MG TAB PO SCH (08:38)
[2023-03-10] MEDS: ATORVASTATIN 40 MG TAB PO SCH (08:39)
[2023-03-10] MEDS: INSULIN ASPART PER UNIT CHARGE SC SCH ×4 (08:39→21:23)
--- NOTE | 2023-03-10 16:05 | Hospitalist Progress Note ---
Date of Service March 10, 2023 Assessment & Plan (1) Altered mental status: (2) DM (diabetes mellitus), type 2: (3) HTN (hypertension): (4) HLD (hyperlipidemia): Plan Per previous provider note with addendum: This is an 83yo M with a PMH of DM II, HTN, HLD who was brought in by police for mental health evaluation after calling the police accusing his neighbors of stealing from him, and eventually getting agitated and pointing to the textile technical officer, as well as physically resisting arrest. 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 Mariscal years ago per chart) As per police, the patient has been calling them for the past 6 months with the same accusations, has been found to process multiple firearms, house in disarray Brought in by police for mental health evaluation after calling the police accusing his neighbors of stealing from him, and eventually getting agitated and pointing to the textile technical officer, as well as physically resisting arrest. Discussed with textile technical officer who brought the patient to the ER, Corporal Skylar Pate Admitted to medical service for possible UTI UTI has been ruled out Psychiatry service consulted-MoCA score 13 out of 30, recommend neurology evaluation Neurologist consulted: Feels patient has mild to moderate dementia with associated behavioral disorder Recommend vitamin B12 supplementation Also recommend starting donepezil [address] Rebollar expressing concern regarding his decision-making capacity and more likely, patient expecting patient will be unable to safely manage his personal or medical affairs 03/04/2023 - Per Dr. Ibrahim: In light of neurologist recommendation that patient has dementia with paranoid behavior, decision making capacity both personal medical and question, patient's disposition thoughtfully being planned. Again discussed over the phone in detail with psychiatry service, and Corporal Skylar Pate who brought the patient initially for mental health evaluation As per Dr. Palumbo from psychiatry service, patient does not meet criteria for 302 petition. However, patient has questionable decision-making capacity at this point. Relea sing him from the hospital, and subsequently returning home Poses great risk for the patient and the community at this point as patient possesses firearms which have not been secured at this point. Upon my discussion with Corporal Pate, she shares the same concern. Relayed this great concern as well as details of the case to case checker Dr. Jeanie Fountain whom I visited in her office. Plan is to contact office of aging to relay findings of evaluation while patient admitted. She has spoken with office of aging labor relations representative. They recommend emergency protective service for this patient. In the meantime, if patient expresses to sign AGAINST MEDICAL ADVICE, 911 should be immediately called, requesting office of aging to provide emergency protective service for this patient. He is not allowed to leave the hospital premises in any circumstance without office of aging permission. Explained to patient that we are awaiting office of aging evaluation before he can be released. manager corporate and office of aging involved - court meeting re: guardianship on (03/07/23) - plan for his cousin to become POA. Guns were removed from the house. HYPERTENSION DYSLIPIDEMIA history of nonadherence with medication blood pressure stable overall Continue usual lisinopril 5mg dose DM II A1c 9.6 SSI while in-patient BSG AC HS Resume usual metformin upon discharge DVT Ppx: SQ heparin Code status: FULL Dispo: Pending - CM and OOA involved, plan to return home after cousin becomes POA Admission and Anticipated Discharge Date Admission Date: March 02, 2023 Subjective Follow-up for cognitive impairment / dementia, etc. Pt is sitting in his chair in NAD Says he had family / friends visiting States he feels fine overall, and has no complaints Denies headache, dizziness, chest pain, shortness of breath, abdominal pain No fevers or chills, problems with urination CM and OOA involved - court meeting was on Friday re: guardianship - plan to return home after his cousin is made POA. All the guns were removed from the house. Review of Systems Review of Systems: All systems reviewed & are unremarkable except as noted in Subjective Physical Exam Physical Exam: General- slim elderly M in NAD Eyes- anicteric Neck- no JVD Lungs- clear breath sounds bilaterally Heart- normal rate, regular rhythm; no murmurs Abdomen- normal bowel sounds, nondistended, soft, nontender Extremities- no pretibial edema, moves extremities Neuro- awake and alert, he is not oriented to place. able to answer simple questions, speech fluent, moves extremities, ambulates in his room Skin- warm & dry Results & Data Results & Data Vital Signs (Past 12 Hours) Vital Signs Temp Pulse Resp BP Pulse Ox O2 Del Method 03/10/23 15:25 36.7 C 70 18 113/77 99 Room Air 03/10/23 08:00 Room Air 03/10/23 08:01 36.5 C 71 16 130/83 97 Room Air Medications Administered Current Inpatient Medications Acetaminophen (Acetaminophen 325 Mg Tab) 650 mg PO Q4H PRN PRN Reason: pain/fever Stop: 03/31/23 22:33 Aspirin (Aspirin 81 Mg Ectab) 81 mg PO DAILY LAUREN Stop: 04/01/23 08:59 Last Admin: 03/10/23 08:38 Dose: 81 mg Atorvastatin Calcium (Atorvastatin 40 Mg Tab) 40 mg PO DAILY LAUREN Stop: 04/01/23 08:59 Last Admin: 03/10/23 08:39 Dose: 40 mg Cyanocobalamin (Cyanocobalamin (B-12) 500 Mcg Tablet) 1,000 mcg PO QAM LAUREN Stop: 04/04/23 13:59 Last Admin: 03/10/23 08:38 Dose: 1,000 mcg Dextrose (Dextrose 50% 50 Ml Syringe) 25 - 50 ml IV UD PRN; Protocol PRN Reason: Hypoglycemia Protocol Stop: 03/31/23 18:48 Donepezil HCl (Donepezil Hcl 5 Mg Tab) 5 mg PO HS LAUREN Stop: 04/03/23 20:59 Last Admin: 03/09/23 20:35 Dose: 5 mg Glucagon (Glucagon For Inj 1 Mg Vial) 1 mg SQ UD PRN; Protocol PRN Reason: Hypoglycemia Protocol Stop: 03/31/23 18:48 Glucose (Glucose 10 Tab/Tube) 4 - 8 tab PO UD PRN; Protocol PRN Reason: Hypoglycemia Treatment Stop: 03/31/23 18:48 Glucose (Glucose 40% Gel 15 Gm Tube) 15 - 30 gm PO UD PRN; Protocol PRN Reason: Hypoglycemia Protocol Stop: 03/31/23 18:48 Heparin Sodium (Porcine) (Heparin Sod 5,000 Unit/0.5 Ml Vial) 5,000 units SQ Q8 LAUREN Stop: 03/31/23 22:33 Last Admin: 03/10/23 13:59 Dose: 5,000 units Insulin Aspart (Insulin Aspart Per Unit Charge) 0 units SC ACHS LAUREN Stop: 03/31/23 20:59 Last Admin: 03/10/23 12:20 Dose: 8 units Lisinopril (Lisinopril 5 Mg Tab) 5 mg PO DAILY [facility]END[facility] TO [facility] Stop: 04/01/23 08:59 Last Admin: 03/10/23 08:38 Dose: 5 mg Magnesium Oxide (Magnesium Oxide 400 Mg Tab) 400 mg PO BID [facility]END[facility] TO [facility] Stop: 04/05/23 20:59 Last Admin: 03/10/23 08:38 Dose: 400 mg Miscellaneous (Carbohydrates For Hypoglycemia ) 15 - 30 gm PO UD PRN PRN Reason: Hypoglycemia Protocol Stop: 03/31/23 18:48 Ondansetron HCl (Ondansetron Inj 2 Mg/Ml 2 Ml Vial) 4 mg IV Q6H PRN PRN Reason: Nausea Stop: 03/31/23 22:33 Polyethylene Glycol (Polyethylene (Miralax) 17 Gm Pack) 17 gm PO DAILY PRN PRN Reason: Constipation Stop: 03/31/23 22:33 Thiamine HCl (Thiamine Hcl 100 Mg Tab) 100 mg PO QAM [facility]ENDING [facility] TO [facility] Stop: 04/07/23 11:59 Last Admin: 03/10/23 08:38 Dose: 100 mg
[2023-03-10] MEDS: DONEPEZIL HCL 5 MG TAB PO SCH (21:22)
[2023-03-11] MEDS: HEPARIN SOD 5,000 UNIT/0.5 ML VIAL SQ SCH ×3 (05:09→20:13)
[2023-03-11] MEDS: CYANOCOBALAMIN (B-12) 500 MCG TABLET PO SCH (08:33)
[2023-03-11] MEDS: ATORVASTATIN 40 MG TAB PO SCH (08:33)
[2023-03-11] MEDS: MAGNESIUM OXIDE 400 MG TAB PO SCH ×2 (08:33→20:10)
[2023-03-11] MEDS: ASPIRIN 81 MG ECTAB PO SCH (08:33)
[2023-03-11] MEDS: THIAMINE HCL 100 MG TAB PO SCH (08:34)
[2023-03-11] MEDS: lisinopril 5 MG TAB PO SCH (08:34)
[2023-03-11] MEDS: INSULIN ASPART PER UNIT CHARGE SC SCH ×4 (08:37→20:09)
--- NOTE | 2023-03-11 15:03 | Hospitalist Progress Note ---
Date of Service March 11, 2023 Assessment & Plan (1) Altered mental status: (2) DM (diabetes mellitus), type 2: (3) HTN (hypertension): (4) HLD (hyperlipidemia): Plan Per previous provider note with addendum: This is an 83yo M with a PMH of DM II, HTN, HLD who was brought in by police for mental health evaluation after calling the police accusing his neighbors of stealing from him, and eventually getting agitated and pointing to the police stenographer, as well as physically resisting arrest. 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 Mariscal years ago per chart) As per police, the patient has been calling them for the past 6 months with the same accusations, has been found to process multiple firearms, house in disarray Brought in by police for mental health evaluation after calling the police accusing his neighbors of stealing from him, and eventually getting agitated and pointing to the police stenographer, as well as physically resisting arrest. Discussed with police stenographer who brought the patient to the ER, Corporal Skylar Pate Admitted to medical service for possible UTI UTI has been ruled out Psychiatry service consulted-MoCA score 13 out of 30, recommend neurology evaluation Neurologist consulted: Feels patient has mild to moderate dementia with associated behavioral disorder Recommend vitamin B12 supplementation Also recommend starting donepezil [address] Rebollar expressing concern regarding his decision-making capacity and more likely, patient expecting patient will be unable to safely manage his personal or medical affairs 03/04/2023 - Per Dr. Ibrahim: In light of neurologist recommendation that patient has dementia with paranoid behavior, decision making capacity both personal medical and question, patient's disposition thoughtfully being planned. Again discussed over the phone in detail with psychiatry service, and Corporal Skylar Pate who brought the patient initially for mental health evaluation As per Dr. Palumbo from psychiatry service, patient does not meet criteria for 302 petition. However, patient has questionable decision-making capacity at this point. Relea sing him from the hospital, and subsequently returning home Poses great risk for the patient and the community at this point as patient possesses firearms which have not been secured at this point. Upon my discussion with Corporal Pate, she shares the same concern. Relayed this great concern as well as details of the case to hospice case manager Dr. Jeanie Fountain whom I visited in her office. Plan is to contact office of aging to relay findings of evaluation while patient admitted. She has spoken with office of aging credit resolution representative. They recommend emergency protective service for this patient. In the meantime, if patient expresses to sign AGAINST MEDICAL ADVICE, 911 should be immediately called, requesting office of aging to provide emergency protective service for this patient. He is not allowed to leave the hospital premises in any circumstance without office of aging permission. Explained to patient that we are awaiting office of aging evaluation before he can be released. deputy program manager and office of aging involved - court meeting re: guardianship on (03/07/23) - plan for his cousin to become POA and discharge home. Guns were removed from the house. HYPERTENSION DYSLIPIDEMIA history of nonadherence with medication blood pressure stable overall Continue usual lisinopril 5mg dose DM II A1c 9.6 SSI while in-patient BSG AC HS Resume usual metformin upon discharge DVT Ppx: SQ heparin Code status: FULL Dispo: Pending - CM and OOA involved, plan to return home after cousin becomes POA Admission and Anticipated Discharge Date Admission Date: March 02, 2023 Subjective Follow-up for cognitive impairment / dementia, etc. Pt is sitting in his chair in NAD Pt does not remember me today - even though we met for the past week and had some good conversations. He does know that he had a situation with police and keeps showing me bruise on his arm. States he feels fine overall, and has no complaints Denies headache, dizziness, chest pain, shortness of breath, abdominal pain No fevers or chills, problems with urination CM and OOA involved - court meeting was on Friday re: guardianship - plan to return home after his cousin is made POA. All the guns were removed from the house. Review of Systems Review of Systems: All systems reviewed & are unremarkable except as noted in Subjective Physical Exam Physical Exam: General- slim elderly M in NAD Eyes- anicteric Neck- no JVD Lungs- clear breath sounds bilaterally Heart- normal rate, regular rhythm; no murmurs Abdomen- normal bowel sounds, nondistended, soft, nontender Extremities- no pretibial edema, moves extremities Neuro- awake and alert, he is not oriented to place. and he does not remember talking to me before, able to answer simple questions, speech fluent, moves extremities, ambulates in his room Skin- warm & dry Results & Data Results & Data Vital Signs (Past 12 Hours) Vital Signs Temp Pulse Resp BP Pulse Ox O2 Del Method 03/11/23 07:40 36.6 C 61 18 156/83 H 96 Room Air Medications Administered Current Inpatient Medications Acetaminophen (Acetaminophen 325 Mg Tab) 650 mg PO Q4H PRN PRN Reason: pain/fever Stop: 03/31/23 22:33 Aspirin (Aspirin 81 Mg Ectab) 81 mg PO DAILY LAUREN Stop: 04/01/23 08:59 Last Admin: 03/11/23 08:33 Dose: 81 mg Atorvastatin Calcium (Atorvastatin 40 Mg Tab) 40 mg PO DAILY LAUREN Stop: 04/01/23 08:59 Last Admin: 03/11/23 08:33 Dose: 40 mg Cyanocobalamin (Cyanocobalamin (B-12) 500 Mcg Tablet) 1,000 mcg PO QAM LAUREN Stop: 04/04/23 13:59 Last Admin: 03/11/23 08:33 Dose: 1,000 mcg Dextrose (Dextrose 50% 50 Ml Syringe) 25 - 50 ml IV UD PRN; Protocol PRN Reason: Hypoglycemia Protocol Stop: 03/31/23 18:48 Donepezil HCl (Donepezil Hcl 5 Mg Tab) 5 mg PO HS [facility] Stop: 04/03/23 20:59 Last Admin: 03/10/23 21:22 Dose: 5 mg Glucagon (Glucagon For Inj 1 Mg Vial) 1 mg SQ UD PRN; Protocol PRN Reason: Hypoglycemia Protocol Stop: 03/31/23 18:48 Glucose (Glucose 10 Tab/Tube) 4 - 8 tab PO UD PRN; Protocol PRN Reason: Hypoglycemia Treatment Stop: 03/31/23 18:48 Glucose (Glucose 40% Gel 15 Gm Tube) 15 - 30 gm PO UD PRN; Protocol PRN Reason: Hypoglycemia Protocol Stop: 03/31/23 18:48 Heparin Sodium (Porcine) (Heparin Sod 5,000 Unit/0.5 Ml Vial) 5,000 units SQ Q8 LAUREN Stop: 03/31/23 22:33 Last Admin: 03/11/23 05:09 Dose: Not Given Insulin Aspart (Insulin Aspart Per Unit Charge) 0 units SC ACHS LAUREN Stop: 03/31/23 20:59 Last Admin: 03/11/23 12:40 Dose: 9 units Lisinopril (Lisinopril 5 Mg Tab) 5 mg PO DAILY [facility] Stop: 04/01/23 08:59 Last Admin: 03/11/23 08:34 Dose: 5 mg Magnesium Oxide (Magnesium Oxide 400 Mg Tab) 400 mg PO BID [facility] Stop: 04/05/23 20:59 Last Admin: 03/11/23 08:33 Dose: 400 mg Miscellaneous (Carbohydrates For Hypoglycemia ) 15 - 30 gm PO UD PRN PRN Reason: Hypoglycemia Protocol Stop: 03/31/23 18:48 Ondansetron HCl (Ondansetron Inj 2 Mg/Ml 2 Ml Vial) 4 mg IV Q6H PRN PRN Reason: Nausea Stop: 03/31/23 22:33 Polyethylene Glycol (Polyethylene (Miralax) 17 Gm Pack) 17 gm PO DAILY PRN PRN Reason: Constipation Stop: 03/31/23 22:33 Thiamine HCl (Thiamine Hcl 100 Mg Tab) 100 mg PO QAM [facility] Stop: 04/07/23 11:59 Last Admin: 03/11/23 08:34 Dose: 100 mg
[2023-03-11] MEDS: DONEPEZIL HCL 5 MG TAB PO SCH (20:10)
[2023-03-12] MEDS: HEPARIN SOD 5,000 UNIT/0.5 ML VIAL SQ SCH (05:28)
[2023-03-12] MEDS: THIAMINE HCL 100 MG TAB PO SCH (08:35)
[2023-03-12] MEDS: MAGNESIUM OXIDE 400 MG TAB PO SCH (08:35)
[2023-03-12] MEDS: ATORVASTATIN 40 MG TAB PO SCH (08:35)
[2023-03-12] MEDS: CYANOCOBALAMIN (B-12) 500 MCG TABLET PO SCH (08:35)
[2023-03-12] MEDS: ASPIRIN 81 MG ECTAB PO SCH (08:35)
[2023-03-12] MEDS: lisinopril 5 MG TAB PO SCH (08:35)
[2023-03-12] MEDS: INSULIN ASPART PER UNIT CHARGE SC SCH ×2 (08:39→12:30)
--- NOTE | 2023-03-26 19:51 | Discharge Summary ---
Discharge Summary Date of Service March 26, 2023 delayed entry date of service 03/12/23 Notes For Next Care Provider Medication Changes From Visit Aricept-for dementia Thiamine, folate-supplements Admission HPI Per Admitting Provider This is an 83yo M with a PMH of DM II, HTN, HLD who was brought in by police for mental health evaluation. History obtained from chart review and somewhat from patient, although he is confused. Patient was brought in by the police after he felt that his neighbor was stealing things from him and during a confrontation, things escalated and the police were called. When they arrived, the patient did have a gun on his person and was eventually handcuffed and brought to the ED for further evaluation. Patient lives alone, does not have any family nearby or that he speaks to. Denies any fever, chills, lightheadedness, chest pain, shortness of breath, nausea, vomiting, dumping, dysuria, diarrhea constipation. Has not seen a primary care provider in years and no longer takes any medications. Knows his name but does not know the year or why he was brought to [facility]. Admission Exam Per Admitting Provider NAD, well developed Lungs: CTA, no wheezing or crackles Cardiac: Normal S1/S2, no murmur Abd: ND, NT, soft MSK: trace b/l distal LE pitting edema Psych: AAOx2 (person and place): could not remember the year and date Principal Dx & Hospital Course #1 = Principal Diagnosis (1) Altered mental status: (2) DM (diabetes mellitus), type 2: (3) HTN (hypertension): (4) HLD (hyperlipidemia): Plan Per previous provider note with addendum: This is an 83yo M with a PMH of DM II, HTN, HLD who was brought in by police for mental health evaluation after calling the police accusing his neighbors of stealing from him, and eventually getting agitated and pointing to the armor officer, as well as physically resisting arrest. 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 Mariscal years ago per chart) As per police, the patient has been calling them for the past 6 months with the same accusations, has been found to process multiple firearms, house in disarray Brought in by police for mental health evaluation after calling the police accusing his neighbors of stealing from him, and eventually getting agitated and pointing to the armor officer, as well as physically resisting arrest. Discussed with armor officer who brought the patient to the ER, Corporal Skylar Pate Admitted to medical service for possible UTI UTI has been ruled out Psychiatry service consulted-MoCA score 13 out of 30, recommend neurology evaluation Neurologist consulted: Feels patient has mild to moderate dementia with associated behavioral disorder Recommend vitamin B12 supplementation Also recommend starting donepezil [address] Rebollar expressing concern regarding his decision-making capacity and more likely, patient expecting patient will be unable to safely manage his personal or medical affairs 03/04/2023 - Per Dr. Ibrahim: In light of neurologist recommendation that patient has dementia with paranoid behavior, decision making capacity both personal medical and question, patient's disposition thoughtfully being planned. Again discussed over the phone in detail with psychiatry service, and Corporal Skylar Pate who brought the patient initially for mental health evaluation As per Dr. Palumbo from psychiatry service, patient does not meet criteria for 302 petition. However, patient has questionable decision-making capacity at this point. Releasing him from the hospital, and subsequently returning home Poses great risk for the patient and the community at this point as patient possesses firearms which have not been secured at this point. Upon my discussion with Corporal Pate, she shares the same concern. Relayed this great concern as well as details of the case to family service caseworker Dr. Jeanie Fountain whom I visited in her office. Plan is to contact office of aging to relay findings of evaluation while patient admitted. She has spoken with office of aging sales representative consultant. They recommend emergency protective service for this patient. In the meantime, if patient expresses to sign AGAINST MEDICAL ADVICE, 911 should be immediately called, requesting office of aging to provide emergency protective service for this patient. He is not allowed to leave the hospital premises in any circumstance without office of aging permission. Explained to patient that we are awaiting office of aging evaluation before he can be released. general manager in training and office of aging involved - court meeting re: guardianship on (03/07/23) - plan for his cousin to become POA and discharge home. Guns were removed from the house. 03/12 medically stable for discharge discharge on Aricept daily ff up with Neurologist Office of Aging will closely follow the patient HYPERTENSION DYSLIPIDEMIA history of nonadherence with medication blood pressure stable overall Continue usual lisinopril 5mg dose DM II A1c 9.6 SSI while in-patient BSG AC HS Resume usual metformin upon discharge DVT Ppx: SQ heparin Code status: FULL Dispo: d/c home with Office of Aging to follow patient, cousin will be POA Discharge Exam General- oriented x 1-2, not in distress, speaks in sentences with no effort or accessory muscle use Eyes- anicteric Neck- no JVD Lungs- clear breath sounds bilaterally, no rales/wheezes Heart- normal rate, regular rhythm; no murmurs Abdomen- normal bowel sounds, nondistended, soft, nontender Extremities- no pretibial edema, no calf tenderness Neuro- alert, oriented x 1-2; no gross focal neurologic deficits Skin- warm & dry Updated Medication List Medication Instructions Recorded Confirmed Type blood sugar diagnostic ([employer]Touch #100 ea 03/12/23 Rx Ultra Test strips) blood-glucose meter (OneTouch #1 ea 03/12/23 Rx Ultra2 Meter) cyanocobalamin (vitamin B-12) 500 1,000 mcg PO QAM 30 days #60 tabs 03/12/23 Rx mcg tablet donepezil 5 mg tablet 5 mg PO HS 30 days #30 tabs 03/12/23 Rx lancets 33 gauge (OneTouch Delica #100 ea 03/12/23 Rx Plus Lancet) thiamine HCl (vitamin B1) 100 mg 100 mg PO QAM 30 days #30 tabs 03/12/23 Rx tablet aspirin 81 mg capsule 81 mg PO DAILY 30 days #30 caps 03/13/23 Rx atorvastatin 40 mg tablet 40 mg PO DAILY 30 days #30 tabs 03/13/23 Rx lisinopril 5 mg tablet 5 mg PO DAILY 30 days #30 tabs 03/13/23 Rx metformin 500 mg tablet 500 mg PO BID 30 days #60 tabs 03/13/23 Rx Hospital Stay Data Consultations 03/01/23 18:14 ED Decision to Admit Stat 03/02/23 08:11 Consult Psychiatry Routine 03/03/23 12:28 Consult Neurology Routine Diagnostic Imagining Performed Head CT 03/01/23 16:[address] DOSE: 547.75 mGy.cm HISTORY: confusion TECHNIQUE: Multiaxial CT images of the head were performed without the use of intravenous contrast. Automated exposure control was utilized for this study. A dose lowering technique was utilized adhering to the principles of ALARA. Comparison: None. Findings: The paranasal sinuses and mastoid air cells are clear. The calvarium and skull base are intact. There is no mass, hematoma, midline shift, acute infarct. White matter hypodensity is nonspecific but suggestive of microvascular ischemic change. The ventricles and sulci demonstrate mild age-related involutional changes. Impression: No acute intracranial abnormality. ACT 112: Negative or not required by law. Electronically signed by: Nick Duong M.D. 03/01/2023 5:53 PM 03/01/23 16:10 CT head/brain wo con Stat Pending Results Patient Have Any Pending Studies at Discharge: No Discharge Instructions Given to Patient (Per Discharging Provider) PLEASE REFER TO YOUR NEW MEDICATION LIST AND FOLLOW INSTRUCTIONS CAREFULLY. YOUR NEW MEDICATIONS INCLUDE: Aricept-for dementia Thiamine, folate-supplements Please take your medications daily and follow up with your Primary Care Physician closely. THE OFFICE OF AGING will continue to follow you closely after discharge for continuation of your care. PLEASE CALL YOUR PRIMARY CARE PHYSICIAN OR RETURN TO THE ER IF WITH WORSENING OF SYMPTOMS, INCLUDING Worsening confusion, forgetfulness, weakness, etc. FOLLOW UP WITH PRIMARY CARE PHYSICIAN OUTLINED ABOVE. Total Time Total Time Spent Total Time Spent (In Minutes): >30 minutes
== END 2023-03-12 14:23 | disposition home or self-care (01) | DRG 884 ==
LOC: ED 15:12 → EDINP 15:12 → SUATTDRO 18:16 → EDINP 22:07 → 3N 22:33 → MERGE 03-02 11:20 → SUATTDRO 03-02 11:20